=== PATIENT | female | born 1970 | race Caucasian/White ===

== ENCOUNTER 2017-04-14 16:21 | Emergency (ER) | payer BC, OTHER, SELFPAY ==
[2017-04-14 16:33] VITALS: BP 122/75
--- NOTE | 2017-04-14 16:56 | EDM.PDOC ---
ED HPI GENERAL MEDICAL PROBLEM - General Chief Complaint: Behavioral/Psych Stated Complaint: CONFUSION, HEARING/SEEING THINGS Time Seen by Provider: 04/14/17 16:30 Source of Information: Reports: Patient, RN Notes Reviewed History Limitations: Reports: No Limitations - History of Present Illness INITIAL COMMENTS - FREE TEXT/NARRATIVE: The patient states that she both smoked and injected methamphetamine starting about 2 weeks ago, and continuing until about one week ago. She states that she has never previously done methamphetamine. Since then, she is having difficulty performing her activities of daily living. She has not eaten much. She has auditory hallucinations in the form of hearing people talking about her outside of her house, and visual hallucinations in the form of seeing the same cars over and over, as well as the feeling of being watched or followed. The patient has tried cocaine in the past, but it has been more than 5 years. She smoked some marijuana this past week. She reports feeling suicidal for the past 2 or 3 days, and has considered a plan of taking an overdose of her medications. She states that she had a prior suicide attempt around 2001, by taking an overdose of pills. She states that she was psychiatrically hospitalized for about 10 days at that time. She states that she has not made any recent attempts to harm herself. The patient's PCP is Dr. Paredes, and her Psychiatrist is Dr. Magana. She states that she has not contacted either of these physicians regarding her current issues. - Related Data Allergies Allergy/AdvReac Type Severity Reaction Status Date / Time No Known Allergies Allergy Verified 04/14/17 16:51 Home Meds: Home Meds Lisinopril 20 mg PO DAILY 12/03/14 [History] Naproxen 500 mg PO BID #14 tablet 12/03/14 [Rx] Escitalopram Oxalate [Escitalopram Oxalate] 20 mg PO DAILY 04/14/17 [History] Lisinopril/Hydrochlorothiazide [Lisinopril-Hctz 20-12.5 mg Tab] 1 tab PO DAILY 04/14/17 [History] Topiramate [Topiramate] 100 mg PO QPM 04/14/17 [History] atorvaSTATin Calcium [Atorvastatin Calcium] 20 mg PO DAILY 04/14/17 [History] clonazePAM [Clonazepam] 0.5 mg PO ASDIRECTED PRN 04/14/17 [History] Past Medical History Cardiovascular History: Reports: High Cholesterol, Hypertension Psychiatric History: Reports: Anxiety, Depression, PTSD - Past Surgical History HEENT Surgical History: Reports: Oral Surgery (Reubens teeth extraction) Female Surgical History: Reports: D&C (x 1), Tubal Ligation Social & Family History - Family History Family Medical History: Noncontributory - Tobacco Use Smoking Status *Q: Current Every Day Smoker Years of Tobacco use: 28 Packs/Tins Daily: 1 - Caffeine Use Caffeine Use: Reports: None - Alcohol Use Alcohol Use History: Yes Days Per Week of Alcohol Use: 0 Number of Drinks Per Day: 2 Total Drinks Per Week: 0 Alcohol Use Frequency: Socially - Recreational Drug Use Recreational Drug Use: Yes Drug Use in Last 12 Months: Yes Recreational Drug Type: Reports: Cocaine, Marijuana/Hashish, Methamphetamine Recreational Drug Route: Reports: Inhaled, Intravenous - Living Situation & Occupation Living situation: Reports: , Alone Occupation: Unemployed ED ROS GENERAL - Review of Systems Review Of Systems: See Below Constitutional: Reports: No Symptoms HEENT: Reports: No Symptoms Respiratory: Reports: No Symptoms Cardiovascular: Reports: No Symptoms Endocrine: Reports: No Symptoms GI/Abdominal: Reports: No Symptoms : Reports: No Symptoms Musculoskeletal: Reports: No Symptoms Skin: Reports: No Symptoms Neurological: Reports: No Symptoms Psychiatric: Reports: No Symptoms Hematologic/Lymphatic: Reports: No Symptoms Immunologic: Reports: No Symptoms ED EXAM, BEHAVIORAL HEALTH - Physical Exam Exam: See Below Exam Limited By: No Limitations General Appearance: Alert, WD/WN, No Apparent Distress Ears: Normal External Exam, Hearing Grossly Normal Nose: Normal Inspection, No Blood Throat/Mouth: Normal Inspection, Normal Lips, Normal Voice, No Airway Compromise Head: Atraumatic, Normocephalic Neck: Normal Inspection, Full Range of Motion Respiratory/Chest: No Respiratory Distress, Lungs Clear, Normal Breath Sounds, No Accessory Muscle Use Cardiovascular: Normal Peripheral Pulses, Regular Rate, Rhythm, No Gallop, No JVD, No Murmur, No Rub GI/Abdominal: Normal Bowel Sounds, Soft, Non-Tender, No Organomegaly, No Distention, No Abnormal Bruit, No Mass (Female) Exam: Deferred Rectal (Female) Exam: Deferred Back Exam: Normal Inspection, Full Range of Motion, NT Extremities: Normal Inspection, Normal Range of Motion, No Pedal Edema, Normal Capillary Refill Neurological: Alert, Normal Cognition, No Motor/Sensory Deficits, Oriented x 3 Psychiatric: Depressed Mood Skin Exam: Warm, Dry, Intact, Normal color, No rash EKG INTERPRETATION EKG Date: 04/14/17 Time: 17:01 Rhythm: NSR Rate (Beats/Min): 65 [place]: Normal P-Wave: Present QRS: Normal ST-T: Normal QT: Normal Comparison: NA - No Prior EKG COURSE, BEHAVIORAL HEALTH COMP - Course Vital Signs: Last Vital Signs Temp 36.6 C 04/14/17 16:30 Pulse 87 04/14/17 16:30 Resp 18 04/14/17 16:30 BP 122/75 04/14/17 16:30 Pulse Ox 100 04/14/17 16:30 Orders, Labs, Meds: Laboratory Tests 04/14/17 04/14/17 04/14/17 Range/Units 17:12 17:12 17:12 WBC 7.20 (3.98-10.04) K/mm3 RBC 4.45 (3.98-5.22) M/mm3 Hgb 12.2 (11.2-15.7) gm/L Hct 37.8 (34.1-44.9) % MCV 84.9 (79.4-94.8) fl MCH 27.4 (25.6-32.2) pg MCHC 32.3 (32.2-35.5) g/dl RDW Std Deviation 45.5 (36.4-46.3) fL Plt Count 414 H (182-369) K/mm3 MPV 8.8 L (9.4-12.3) fl Neutrophils % (Manual) 68 H (40-60) % Band Neutrophils % 1 (0-10) % Lymphocytes % (Manual) 30 (20-40) % Atypical Lymphs % 0 % Monocytes % (Manual) 1 L (2-10) % Eosinophils % (Manual) 0 L (0.7-5.8) % Basophils % (Manual) 0 L (0.1-1.2) Platelet Estimate Adequate Plt Morphology Comment Normal Anisocytosis 1+ slight RBC Morph Comment Not Reportable Sodium 138 (136-145) mEq/L Potassium 3.4 L (3.5-5.1) mEq/L Chloride 102 (98-107) mEq/L Carbon Dioxide 25 (21-32) mEq/L Anion Gap 14.4 (5-15) BUN 23 H (7-18) mg/dL Creatinine 1.4 H (0.55-1.02) mg/dL Est Cr Clr Drug Dosing 40.65 mL/min Estimated GFR (MDRD) 40 (>60) mL/min BUN/Creatinine Ratio 16.4 (14-18) Glucose 104 (74-106) mg/dL Calcium 8.9 (8.5-10.1) mg/dL Total Bilirubin 0.2 (0.2-1.0) mg/dL AST 24 (15-37) U/L ALT 37 (14-59) U/L Alkaline Phosphatase 99 (46-116) U/L Total Protein 6.8 (6.4-8.2) g/dl Albumin 3.5 (3.4-5.0) g/dl Globulin 3.3 gm/dL Albumin/Globulin Ratio 1.1 (1-2) TSH 3rd Generation 0.535 (0.358-3.74) uIU/mL Urine HCG, Qual (NEGATIVE) Salicylates 14.0 (2.8-20) mg/dL Urine Opiates Screen (NEGATIVE) Ur Buprenorphine Scrn (NEGATIVE) Ur Oxycodone Screen (NEGATIVE) Urine Methadone Screen (NEGATIVE) Ur Propoxyphene Screen (NEGATIVE) Acetaminophen 6 L (10-30) ug/mL Ur Barbiturates Screen (NEGATIVE) Ur Tricyclics Screen (NEGATIVE) Ur Phencyclidine Scrn (NEGATIVE) Ur Amphetamine Screen (NEGATIVE) U Methamphetamines Scrn (NEGATIVE) U Benzodiazepines Scrn (NEGATIVE) U Cocaine Metab Screen (NEGATIVE) U Marijuana (THC) Screen (NEGATIVE) Ethyl Alcohol 0.00 (0.00) gm% 04/14/17 04/14/17 Range/Units 17:25 17:25 WBC (3.98-10.04) K/mm3 RBC (3.98-5.22) M/mm3 Hgb (11.2-15.7) gm/L Hct (34.1-44.9) % MCV (79.4-94.8) fl MCH (25.6-32.2) pg MCHC (32.2-35.5) g/dl RDW Std Deviation (36.4-46.3) fL Plt Count (182-369) K/mm3 MPV (9.4-12.3) fl Neutrophils % (Manual) (40-60) % Band Neutrophils % (0-10) % Lymphocytes % (Manual) (20-40) % Atypical Lymphs % % Monocytes % (Manual) (2-10) % Eosinophils % (Manual) (0.7-5.8) % Basophils % (Manual) (0.1-1.2) Platelet Estimate Plt Morphology Comment Anisocytosis RBC Morph Comment Sodium (136-145) mEq/L Potassium (3.5-5.1) mEq/L Chloride (98-107) mEq/L Carbon Dioxide (21-32) mEq/L Anion Gap (5-15) BUN (7-18) mg/dL Creatinine (0.55-1.02) mg/dL Est Cr Clr Drug Dosing mL/min Estimated GFR (MDRD) (>60) mL/min BUN/Creatinine Ratio (14-18) Glucose (74-106) mg/dL Calcium (8.5-10.1) mg/dL Total Bilirubin (0.2-1.0) mg/dL AST (15-37) U/L ALT (14-59) U/L Alkaline Phosphatase (46-116) U/L Total Protein (6.4-8.2) g/dl Albumin (3.4-5.0) g/dl Globulin gm/dL Albumin/Globulin Ratio (1-2) TSH 3rd Generation (0.358-3.74) uIU/mL Urine HCG, Qual Negative (NEGATIVE) Salicylates (2.8-20) mg/dL Urine Opiates Screen Negative (NEGATIVE) Ur Buprenorphine Scrn Negative (NEGATIVE) Ur Oxycodone Screen Negative (NEGATIVE) Urine Methadone Screen Negative (NEGATIVE) Ur Propoxyphene Screen Negative (NEGATIVE) Acetaminophen (10-30) ug/mL Ur Barbiturates Screen Negative (NEGATIVE) Ur Tricyclics Screen Negative (NEGATIVE) Ur Phencyclidine Scrn Negative (NEGATIVE) Ur Amphetamine Screen Negative (NEGATIVE) U Methamphetamines Scrn Negative (NEGATIVE) U Benzodiazepines Scrn Presumptive positive H (NEGATIVE) U Cocaine Metab Screen Negative (NEGATIVE) U Marijuana (THC) Screen Presumptive positive H (NEGATIVE) Ethyl Alcohol (0.00) gm% Medical Clearance: 04/14/17 18:[address] Campos, Psychiatrist at [facility]. She accepts the patient for admission, however, would like the patient to be involuntary, transported by the triage nurse, and they are willing to hold the bed until midnight CT. 04/14/17 18:35 Notified that all of the application software developer are currently out on assignment. One will call us back when they are available to let us know if they can transport the patient today. 04/14/17 19:[address] Deluca, and care of the patient turned over to him at this time, for change of shift. At this time, a triage nurse is not available to transport the patient, however, there is still time to get the patient to [place] before midnight central time, if a triage nurse becomes available. If not, the patient will need to remain in the ED overnight, and a new accepting facility will need to be found. 04/14/17 20:40 The patient will be transferred to [facility] by the triage nurse. Departure - Departure Time of Disposition: 20:40 Disposition: DC/Tfer to Psych Hosp/Unit 65 Condition: Good Clinical Impression: Psychosis, Suicidal ideation, Depression - Discharge Information
== END 2017-04-14 20:30 ==
LOC: JD.ED 16:21
DX: R45.851 Suicidal ideations (principal); F32.9 Major depressive disorder, single episode, unspecified; F29 Unspecified psychosis not due to a substance or known physiological condition; F17.210 Nicotine dependence, cigarettes, uncomplicated; Z79.899 Other long term (current) drug therapy; E78.00 Pure hypercholesterolemia, unspecified; I10 Essential (primary) hypertension; F41.8 Other specified anxiety disorders
CPT/HCPCS: 36415; 80053; 80306; 81025; 84443; 85025; 93005; 99285; G0480; 99284

== ENCOUNTER 2017-09-14 14:05 | Emergency (ER) | payer BC, MEDICAID, OTHER ==
[2017-09-14 14:20] VITALS: BP 134/86
[2017-09-14] MEDS ORDERED: Sodium Chloride 0.9% 10 ML Syringe FLUSH PRN (14:31)
[2017-09-14] MEDS ORDERED: Aspirin 81 MG Tab.Chew PO ONE (14:31)
[2017-09-14] MEDS ORDERED: LORazepam 2 MG/ML MDV IVPUSH ONE (14:32)
[2017-09-14] MEDS ORDERED: Sodium Chloride 0.9% 1,000 ML IV SCH (14:45)
--- NOTE | 2017-09-14 15:20 | CR ---
Chest: Portable view of the chest was obtained. Comparison: No prior chest x-ray. Heart size and mediastinum are normal. Lungs are clear. Minimal scoliosis is noted within the spine. Impression: 1. Nothing acute is identified on portable chest x-ray. Diagnostic code #2
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
[2017-09-14] MEDS ORDERED: HYDROmorphone 0.5 MG/0.5 ML Syringe IVPUSH ONE (16:18)
[2017-09-14] MEDS ORDERED: Acetaminophen/HYDROcodone 325-5 MG Tab PO ONE (16:34)
== END 2017-09-14 16:48 | disposition home or self-care (01) ==
LOC: JD.ED 14:05
DX: R51 Headache (principal); R07.89 Other chest pain; E78.00 Pure hypercholesterolemia, unspecified; I10 Essential (primary) hypertension; K21.9 Gastro-esophageal reflux disease without esophagitis; F17.210 Nicotine dependence, cigarettes, uncomplicated; F32.9 Major depressive disorder, single episode, unspecified; Z79.899 Other long term (current) drug therapy
CPT/HCPCS: 36415; 71010; 80053; 84484; 85025; 85379; 93005; 96361; 96374; 99285; A9270; J2060; J7040; J7050; 93010

== ENCOUNTER 2017-09-29 22:03 | Emergency (ER) | payer MEDICAID ==
[2017-09-29 22:26] VITALS: BP 145/107
--- NOTE | 2017-09-29 23:00 | EDM.PDOC ---
ED HPI GENERAL MEDICAL PROBLEM - General Chief Complaint: Laceration Stated Complaint: CUT THUMB ON R HAND Time Seen by Provider: 09/29/17 22:10 Source of Information: Reports: Patient, RN Notes Reviewed History Limitations: Reports: No Limitations - History of Present Illness INITIAL COMMENTS - FREE TEXT/NARRATIVE: The patient states that she accidentally lacerated the dorsal aspect of her right thumb around 21:45 this evening, when cutting a tomato. She is otherwise uninjured. No prior right thumb injury. The patient's last tetanus vaccination was in 2014. The patient's PCP is Dr. Paredes. Right 1-Thumb Pain Score (Numeric/FACES): 7 - Related Data Allergies Allergy/AdvReac Type Severity Reaction Status Date / Time No Known Allergies Allergy Verified 09/29/17 22:16 Home Meds: Home Meds Escitalopram Oxalate [Escitalopram Oxalate] 20 mg PO DAILY 04/14/17 [History] Lisinopril/Hydrochlorothiazide [Lisinopril-Hctz 20-12.5 mg Tab] 1 tab PO DAILY 04/14/17 [History] Topiramate [Topiramate] 100 mg PO BID 04/14/17 [History] atorvaSTATin Calcium [Atorvastatin Calcium] 20 mg PO DAILY 04/14/17 [History] clonazePAM [Clonazepam] 0.5 mg PO ASDIRECTED PRN 04/14/17 [History] ALPRAZolam [Xanax] 1 mg PO TID PRN 09/14/17 [History] Gabapentin [Neurontin] 300 mg PO DAILY 09/14/17 [History] Naproxen 500 mg PO BID PRN 09/14/17 [History] Prazosin [Minpress] 1 mg PO DAILY 09/14/17 [History] hydrOXYzine Pamoate [Vistaril] 25 mg PO BEDTIME 09/14/17 [History] Past Medical History Cardiovascular History: Reports: High Cholesterol, Hypertension Gastrointestinal History: Reports: GERD Psychiatric History: Reports: Anxiety, Depression, PTSD - Past Surgical History HEENT Surgical History: Reports: Oral Surgery ([place] teeth extraction), Tonsillectomy Female Surgical History: Reports: Section (x 1), D&C (x 1), Tubal Ligation Musculoskeletal Surgical History: Reports: ORIF (right fifth finger) Social & Family History - Family History Family Medical History: Noncontributory - Tobacco Use Smoking Status *Q: Current Every Day Smoker Years of Tobacco use: 30 Packs/Tins Daily: 1 Packs/Tins Daily Comment: Down from 1.5 ppd - Caffeine Use Caffeine Use: Reports: Coffee - Alcohol Use Alcohol Use History: Yes Days Per Week of Alcohol Use: 0 Number of Drinks Per Day: 2 Total Drinks Per Week: 0 Alcohol Use Frequency: Socially - Recreational Drug Use Recreational Drug Use: Yes Drug Use in Last 12 Months: No Recreational Drug Type: Reports: Cocaine (last = 2010), Marijuana/Hashish (last = 2015) - Living Situation & Occupation Living situation: Reports: , Alone 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[employer]) ED ROS GENERAL - Review of Systems Review Of Systems: See Below Constitutional: Reports: No Symptoms HEENT: Reports: No Symptoms Respiratory: Reports: No Symptoms Cardiovascular: Reports: No Symptoms Endocrine: Reports: No Symptoms GI/Abdominal: Reports: No Symptoms : Reports: No Symptoms Musculoskeletal: Reports: No Symptoms Skin: Reports: No Symptoms Neurological: Reports: No Symptoms Psychiatric: Reports: No Symptoms Hematologic/Lymphatic: Reports: No Symptoms Immunologic: Reports: No Symptoms ED EXAM, SKIN/RASH Exam: See Below Exam Limited By: No Limitations General Appearance: Alert, WD/WN, No Apparent Distress Extremities: Other (Approximately 2.0 cm curvilinear laceration over the extensor surface of the right first MCP joint. Significant bleeding. No apparent extensor tendon injury. Neurovascular status of the right thumb is intact.) ED SKIN PROCEDURES - Laceration/Wound Repair Right Hand Lac/Wound length In cm: 2.0 Appearance: Subcutaneous, Irregular, Clean Distal NVT: Neuro & Vascular Intact, No Tendon Injury Anesthetic Type: Local Local Anesthesia - Lidocaine (Xylocaine): 1% with EPI Local Anesthesia - Bupivicaine (Marcaine): 0.5% Plain Local Anesthetic Volume: 1cc Skin Prep: Providone-Iodine (Betadine) Exploration/Debridement/Repair: Wound Explored, In a Bloodless Field, Explored to Base, Wound Margins Revised Closed with: Sutures Suture Size: 3-0 Suture Type: Nylon, Interrupted, Simple Sterile Dressing Applied: Nurse Tetanus Status Addressed: Yes Complications: No Course - Vital Signs Last Recorded V/S: Last Vital Signs Temp 36.7 C 09/29/17 22:21 Pulse 65 09/29/17 22:21 Resp 18 09/29/17 22:21 BP 145/107 H 09/29/17 22:21 Pulse Ox 99 09/29/17 22:21 - Orders/Labs/Meds Meds: Medications Discontinued Medications Generic Name Dose Route Start Last Admin Trade Name Kathleen PRN Reason Stop Dose Admin Bupivacaine HCl 10 ml 09/29/17 23:19 09/29/17 23:44 Sensorcaine-Mpf 0.5% INJECT 09/29/17 23:20 10 ml ONETIME ONE Administration Lidocaine/Epinephrine 20 ml 09/29/17 23:18 09/29/17 23:44 Xylocaine 1% With Epinephrine 1:100,000 INJECT 09/29/17 23:19 20 ml ONETIME ONE Administration Lidocaine/Tetracaine 1 ml 09/29/17 23:18 09/29/17 23:43 Let Soln TOP 09/29/17 23:19 1 ml ONETIME ONE Administration - Re-Assessments/Exams Free Text/Narrative Re-Assessment/Exam: 09/29/17 23:01 I'm hoping to Dermabond the laceration, however, that will not be possible if the wound is bleeding. I have therefore asked the patient to apply direct pressure to the wound for about 10-15 minutes, to see if we can get it to stop bleeding. 09/29/17 23:19 After about 15 minutes of direct pressure, the wound has stopped bleeding, however, the edges do not approximate, therefore sutures will be required. I have ordered some LET to be applied. 09/30/17 02:39 We have been very busy in the ED tonight. By the time I returned to suture the patient's laceration, I was not certain that there was adequate anesthesia from the LET, therefore I instilled a small amount of a 50:50 admixture of lidocaine 1% with epinephrine and bupivacaine 0.5% without epinephrine. The wound was closed with 3 simple interrupted sutures using 3-0 Ethilon. The patient tolerated the procedure well. A Band-Aid was applied per nurse Figueroa. Departure - Departure Time of Disposition: 02:43 Disposition: Home, Self-Care 01 Condition: Good Clinical Impression: Hand laceration - Discharge Information Referrals: PCP,None [Ordering Only Provider] - Jonny Paredes MD [Primary Care Provider] - Forms: ED Department Discharge Additional Instructions: You were seen in the emergency room after cutting the base of your right thumb. Your wound was closed with 3 sutures. Keep the wound clean with ordinary soap and water. Pat dry, then apply a clean Band-Aid, daily. Do not soak the wound, such as with doing dishes, in the bathtub, or swimming. If the wound gets dirty, wash it with soap and water and reapply a clean Band- Aid. The sutures should be ready for removal by 10/10/2017. They can be removed at a walk-in clinic, your doctor's office, or in the ER. If any other problems, please do not hesitate to return to the ER.
[2017-09-29] MEDS ORDERED: Lidocaine/EPINEPHrine/Tetracaine Soln 1 ML TOP ONE (23:18)
[2017-09-29] MEDS ORDERED: Lidocaine 1% with EPINEPHrine 1:100,000 20 ML MDV INJECT ONE (23:18)
[2017-09-29] MEDS ORDERED: Bupivacaine 0.5% 10 ML SDV INJECT ONE (23:19)
== END 2017-09-30 02:52 | disposition home or self-care (01) ==
LOC: JD.ED 22:03
DX: S61.011A Laceration without foreign body of right thumb without damage to nail, initial encounter (principal); F17.210 Nicotine dependence, cigarettes, uncomplicated; Z79.899 Other long term (current) drug therapy; W26.0XXA Contact with knife, initial encounter
CPT/HCPCS: 12001; 99283; A9270; 99282-25

== ENCOUNTER 2017-11-18 20:30 | Emergency (ER) | payer MEDICAID ==
[2017-11-18 20:53] VITALS: BP 131/76
--- NOTE | 2017-11-18 20:53 | EDM.PDOCBH ---
ED HPI GENERAL MEDICAL PROBLEM - General Chief Complaint: Behavioral/Psych Stated Complaint: LIBERTAD AMB Time Seen by Provider: 11/18/17 20:53 Source of Information: Reports: Patient History Limitations: Reports: No Limitations - History of Present Illness INITIAL COMMENTS - FREE TEXT/NARRATIVE: 47-year-old female presents to the ED in the catheter #2 police officers. Apparently she was driving a vehicle on authorized. She states she was coming to the hospital for care but took someone else's vehicle. He currently is in her own home but only for another week apparently she's been evicted. Patient has suffered severe frostbite to the tips of all of her fingers 2 weeks ago and was hospital is in [facility] I believe. She used methamphetamines on last week and some swelling he has felt jittery anxious and shooting pains in her limbs particularly today. This is caused her not to eat or drink much. She feels anxious nauseated with some diarrhea. No fever or chills. She's not sure where she is going to go after she is evicted from her home in the next week. She is post follow-up with physiotherapy tomorrow in our hospital for whirlpool treatments of her fingertips and debridement as needed. Patient is on antidepressant citalopram and is on Xanax 1 mg 3 times a day and clonazepam 0.5 mg when necessary. It's unclear if she's been taking the medications as prescribed. Onset: Today Onset Date: 11/17/17 (Symptoms started yesterday and last night. Unable sleep much the last few days.) Duration: Hour(s): Location: Reports: Generalized (Generalized sharp stabbing lancinating pain in her limbs i.e. neurogenic.) Severity: Moderate Improves with: Reports: None Worsens with: Reports: None Context: Reports: Other (Methamphetamine use 3 days ago.). Denies: Activity, Exercise, Lifting, Sick Contact, Trauma Associated Symptoms: Reports: Cough, Fever/Chills, Loss of Appetite, Malaise, Nausea/Vomiting, Other (Nausea mild diarrhea by her report.). Denies: Confusion , Chest Pain, cough w sputum, Diaphoresis, Headaches (Chills but no fever), Rash , Seizure, Shortness of Breath, Syncope Treatments DIRECTOR OF SPECIAL SERVICES: Reports: Other (see below) (None.) Left Chest Pain Score (Numeric/FACES): 6 - Related Data Allergies Allergy/AdvReac Type Severity Reaction Status Date / Time No Known Allergies Allergy Verified 09/29/17 22:16 Home Meds: Home Meds Escitalopram Oxalate [Escitalopram Oxalate] 20 mg PO DAILY 04/14/17 [History] Lisinopril/Hydrochlorothiazide [Lisinopril-Hctz 20-12.5 mg Tab] 1 tab PO DAILY 04/14/17 [History] Topiramate [Topiramate] 100 mg PO BID 04/14/17 [History] atorvaSTATin Calcium [Atorvastatin Calcium] 20 mg PO DAILY 04/14/17 [History] clonazePAM [Clonazepam] 0.5 mg PO ASDIRECTED PRN 04/14/17 [History] ALPRAZolam [Xanax] 1 mg PO TID PRN 09/14/17 [History] Gabapentin [Neurontin] 300 mg PO DAILY 09/14/17 [History] Naproxen 500 mg PO BID PRN 09/14/17 [History] Prazosin [Minpress] 1 mg PO DAILY 09/14/17 [History] hydrOXYzine Pamoate [Vistaril] 25 mg PO BEDTIME 09/14/17 [History] Past Medical History - Past Health History Medical/Surgical History: Denies Medical/Surgical History Cardiovascular History: Reports: High Cholesterol, Hypertension Gastrointestinal History: Reports: GERD 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 (See Below) Other OB/BYN History: menopause Neurological History: Reports: Headaches, Chronic Psychiatric History: Reports: Anxiety, Depression, PTSD - Past Surgical History HEENT Surgical History: Reports: Oral Surgery, Tonsillectomy Female Surgical History: Reports: Section, D&C, Tubal Ligation Musculoskeletal Surgical History: Reports: ORIF Social & Family History - Family History Family Medical History: Noncontributory - Tobacco Use Smoking Status *Q: Current Every Day Smoker Years of Tobacco use: 30 Packs/Tins Daily: 1 Second Hand Smoke Exposure: No - Caffeine Use Caffeine Use: Reports: Coffee, Soda - Alcohol Use Days Per Week of Alcohol Use: 0 Number of Drinks Per Day: 2 Total Drinks Per Week: 0 - Recreational Drug Use Recreational Drug Use: Yes Drug Use in Last 12 Months: No Recreational Drug Type: Reports: Marijuana/Hashish, Methamphetamine Other Recreational Drug Type: last used thursday - Living Situation & Occupation Living situation: Reports: , Alone 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 Denies : Fever, Chills HEENT: Reports: No Symptoms Respiratory: Reports: No Symptoms, Shortness of Breath Cardiovascular: Reports: Palpitations (Occasional palpitations) Endocrine: Reports: Fatigue GI/Abdominal: Reports: Diarrhea, Decreased Appetite, Nausea. Denies: Abdominal Pain, Difficulty Swallowing, Distension, Flatus, Hematemesis, Hematochezia, Melena, Other : Reports: No Symptoms Musculoskeletal: Reports: Other (Pain mostly in her fingertips where she has suffered severe frostbite. The left distal fingertip on the left hand remains quite white. There is an open wound to the tip of the right third finger as well where there has been skin breakdown. ) Skin: Reports: Other (Patient has skin sloughing from almost all the fingers of both hands. There is no open active infective wounds.) Neurological: Reports: Numbness, Paresthesia (All fingertips), Tingling. Denies : Trouble Speaking ( all fingertips of both hands.), Difficulty Walking, Weakness Psychiatric: Reports: Anxiety Hematologic/Lymphatic: Reports: No Symptoms Immunologic: Reports: No Symptoms ED EXAM, BEHAVIORAL HEALTH - Physical Exam Exam: See Below Exam Limited By: No Limitations General Appearance: Alert, WD/WN, Anxious Eye Exam: Bilateral Eye: Normal Inspection Throat/Mouth: Normal Inspection, Normal Oropharynx (Tongue is mildly dry and coated.), Other Head: Atraumatic, Normocephalic Neck: Normal Inspection, Supple, Non-Tender, Full Range of Motion. No: Lymphadenopathy (L), Lymphadenopathy (R) Respiratory/Chest: No Respiratory Distress, Lungs Clear, Normal Breath Sounds, Chest Non-Tender Cardiovascular: Normal Peripheral Pulses, Regular Rate, Rhythm, No Edema, No Gallop, No Rub GI/Abdominal: Normal Bowel Sounds, Soft, Non-Tender, No Organomegaly, No Abnormal Bruit, No Mass, Pelvis Stable Back Exam: Normal Inspection, Full Range of Motion, Other (No abrasions or contusions.). No: CVA Tenderness (L) Extremities: Other (Fingers show evidence of frostbite injuries particularly the tips of all fingers. There is dressings applied to the middle fingers bilaterally where she has sloughed skin from the distal phalanx. The left fifth digit remains quite white on the end suspicious for skin loss and tissue loss.) Neurological: Alert, Normal Mood/Affect, CN II-XII Intact, Normal Cognition, Normal Gait, No Motor/Sensory Deficits, Oriented x 3 Psychiatric: Alert, Normal Affect, Normal Cognition, Normal Mood, Oriented, Other Skin Exam: Warm, Dry (Mildly anxious.), Intact, Normal color, No rash EKG INTERPRETATION EKG Date: 11/18/17 Time: 20:45 Rhythm: NSR Rate (Beats/Min): 79 [place]: Normal P-Wave: Present QRS: Other (Q waves V1 and V2 and V3 compatible with an old anteroseptal myocardial infarction. Q-wave in aVL which is nonspecific) ST-T: Other (Diffuse abnormal repolarization pattern.) QT: Normal EKG Interpretation Comments: Abnormal ECG. COURSE, BEHAVIORAL HEALTH COMP - Course Vital Signs: Last Vital Signs Temp 36.0 C 11/18/17 20:53 Pulse 78 11/18/17 20:53 Resp 14 11/18/17 20:53 BP 131/76 11/18/17 20:53 Pulse Ox 99 11/18/17 20:53 Orders, Labs, Meds: Active Orders 24 hr Category Date Time Status URINALYSIS W/MICROSCOPIC [UA W/MICROSCOPIC] [URIN] Stat Lab 11/18/17 21:20 Results Dextrose 5%-0.9% NaCl [Dextrose 5%-Normal Saline] 1,000 Med 11/18/17 21:15 Active ml IV ASDIRECTED Ketorolac [Toradol] Med 11/18/17 21:15 Active 30 mg IVPUSH ONETIME EKG 12 Lead [EK] Stat Ther 11/18/17 20:45 Ordered Medication Orders Dextrose/Sodium Chloride (Dextrose 5%-Normal Saline) 1,000 mls @ 999 mls/hr IV ASDIRECTED ELODIA Last Admin: 11/18/17 21:19 Dose: 999 mls/hr Ketorolac Tromethamine (Toradol) 30 mg IVPUSH ONETIME ELODIA Last Admin: 11/18/17 21:20 Dose: 30 mg Laboratory Tests 01/28/18 01/28/18 01/28/18 Range/Units 21:10 21:10 21:10 WBC 5.30 (3.98-10.04) K/mm3 RBC 4.79 (3.98-5.22) M/mm3 Hgb 14.4 (11.2-15.7) gm/L Hct 42.7 (34.1-44.9) % MCV 89.1 (79.4-94.8) fl MCH 30.1 (25.6-32.2) pg MCHC 33.7 (32.2-35.5) g/dl RDW Std Deviation 46.3 (36.4-46.3) fL Plt Count 338 (182-369) K/mm3 MPV 9.1 L (9.4-12.3) fl Neutrophils % (Manual) 61 H (40-60) % Band Neutrophils % 0 (0-10) % Lymphocytes % (Manual) 27 (20-40) % Atypical Lymphs % 0 % Monocytes % (Manual) 7 (2-10) % Eosinophils % (Manual) 5 (0.7-5.8) % Basophils % (Manual) 0 L (0.1-1.2) Platelet Estimate Adequate RBC Morph Comment Normal Sodium 140 (136-145) mEq/L Potassium 3.5 (3.5-5.1) mEq/L Chloride 106 (98-107) mEq/L Carbon Dioxide 24 (21-32) mEq/L Anion Gap 13.5 (5-15) BUN 18 (7-18) mg/dL Creatinine 1.0 (0.55-1.02) mg/dL Est Cr Clr Drug Dosing 56.91 mL/min Estimated GFR (MDRD) 59 (>60) mL/min BUN/Creatinine Ratio 18.0 (14-18) Glucose 123 H (74-106) mg/dL Calcium 8.5 (8.5-10.1) mg/dL Total Bilirubin 0.2 (0.2-1.0) mg/dL AST 15 (15-37) U/L ALT 24 (14-59) U/L Alkaline Phosphatase 101 (46-116) U/L C-Reactive Protein < 0.2 (<1.0) mg/dL Total Protein 6.5 (6.4-8.2) g/dl Albumin 3.2 L (3.4-5.0) g/dl Globulin 3.3 gm/dL Albumin/Globulin Ratio 1.0 (1-2) Urine Color (Yellow) Urine Appearance (Clear) Urine pH (5.0-8.0) Ur Specific [place] (1.005-1.030) Urine Protein (Negative) Urine Glucose (UA) (Negative) Urine Ketones (Negative) Urine Occult Blood (Negative) Urine Nitrite (Negative) Urine Bilirubin (Negative) Urine Urobilinogen (0.2-1.0) Ur Leukocyte Esterase (Negative) Urine Opiates Screen (NEGATIVE) Ur Buprenorphine Scrn (NEGATIVE) Ur Oxycodone Screen (NEGATIVE) Urine Methadone Screen (NEGATIVE) Ur Propoxyphene Screen (NEGATIVE) Ur Barbiturates Screen (NEGATIVE) Ur Tricyclics Screen (NEGATIVE) Ur Phencyclidine Scrn (NEGATIVE) Ur Amphetamine Screen (NEGATIVE) U Methamphetamines Scrn (NEGATIVE) U Benzodiazepines Scrn (NEGATIVE) U Cocaine Metab Screen (NEGATIVE) U Marijuana (THC) Screen (NEGATIVE) Ethyl Alcohol 0.00 (0.00) gm% 11/18/17 11/18/17 Range/Units 21:20 21:20 WBC (3.98-10.04) K/mm3 RBC (3.98-5.22) M/mm3 Hgb (11.2-15.7) gm/L Hct (34.1-44.9) % MCV (79.4-94.8) fl MCH (25.6-32.2) pg MCHC (32.2-35.5) g/dl RDW Std Deviation (36.4-46.3) fL Plt Count (182-369) K/mm3 MPV (9.4-12.3) fl Neutrophils % (Manual) (40-60) % Band Neutrophils % (0-10) % Lymphocytes % (Manual) (20-40) % Atypical Lymphs % % Monocytes % (Manual) (2-10) % Eosinophils % (Manual) (0.7-5.8) % Basophils % (Manual) (0.1-1.2) Platelet Estimate RBC Morph Comment Sodium (136-145) mEq/L Potassium (3.5-5.1) mEq/L Chloride (98-107) mEq/L Carbon Dioxide (21-32) mEq/L Anion Gap (5-15) BUN (7-18) mg/dL Creatinine (0.55-1.02) mg/dL Est Cr Clr Drug Dosing mL/min Estimated GFR (MDRD) (>60) mL/min BUN/Creatinine Ratio (14-18) Glucose (74-106) mg/dL Calcium (8.5-10.1) mg/dL Total Bilirubin (0.2-1.0) mg/dL AST (15-37) U/L ALT (14-59) U/L Alkaline Phosphatase (46-116) U/L C-Reactive Protein (<1.0) mg/dL Total Protein (6.4-8.2) g/dl Albumin (3.4-5.0) g/dl Globulin gm/dL Albumin/Globulin Ratio (1-2) Urine Color Yellow (Yellow) Urine Appearance Clear (Clear) Urine pH 6.5 (5.0-8.0) Ur Specific [place] 1.025 (1.005-1.030) Urine Protein Negative (Negative) Urine Glucose (UA) Negative (Negative) Urine Ketones Negative (Negative) Urine Occult Blood 1+ H (Negative) Urine Nitrite Negative (Negative) Urine Bilirubin Negative (Negative) Urine Urobilinogen 0.2 (0.2-1.0) Ur Leukocyte Esterase Negative (Negative) Urine Opiates Screen Negative (NEGATIVE) Ur Buprenorphine Scrn Negative (NEGATIVE) Ur Oxycodone Screen Presumptive positive H (NEGATIVE) Urine Methadone Screen Negative (NEGATIVE) Ur Propoxyphene Screen Negative (NEGATIVE) Ur Barbiturates Screen Negative (NEGATIVE) Ur Tricyclics Screen Negative (NEGATIVE) Ur Phencyclidine Scrn Negative (NEGATIVE) Ur Amphetamine Screen Presumptive positive H (NEGATIVE) U Methamphetamines Scrn Negative (NEGATIVE) U Benzodiazepines Scrn Negative (NEGATIVE) U Cocaine Metab Screen Negative (NEGATIVE) U Marijuana (THC) Screen Presumptive positive H (NEGATIVE) Ethyl Alcohol (0.00) gm% Medications Generic Name Dose Route Start Last Admin Trade Name Freq PRN Reason Stop Dose Admin Dextrose/Sodium Chloride 1,000 mls @ 999 mls/hr 11/18/17 21:15 11/18/17 21:19 Dextrose 5%-Normal Saline IV 999 mls/hr ASDIRECTED ELODIA Administration Ketorolac Tromethamine 30 mg 11/18/17 21:15 11/18/17 21:20 Toradol IVPUSH 30 mg ONETIME ELODIA Administration Discontinued Medications Generic Name Dose Route Start Last Admin Trade Name Kathleen PRN Reason Stop Dose Admin Clonazepam 1 mg 11/18/17 22:10 Klonopin PO 11/18/17 22:11 ONETIME ONE Lorazepam 1 mg 11/18/17 21:05 11/18/17 21:19 Ativan IVPUSH 11/18/17 21:06 1 mg ONETIME ONE Administration Re-Assessment/Re-Exam: 39-year-old female brought to the ED after she was caught driving a vehicle unauthorized to the which she took some analysis vehicle without their permission. Patient is currently living at her own home. She states that this is only for another week at which time she is evicted. She has no plans as to where she is going to live after this. Patient has been using alcohol and other drugs excessively as of late. Last use of methamphetamine was 3 days ago. She has suffered severe frostbite injuries to all of her fingers 2 weeks ago and still has bandages on the tips of the third fingers bilaterally. Skin is sloughed from the tips of those fingers. She is scheduled to see physiotherapy tomorrow with plans to get into the whirlpool bath and continued debridement of wounds. It looks like she may lose the tip of her left fifth finger as it remains completely white and red to touch. She has numbness and tingling of all of her fingertips due to nerve injury. Intermittently they hurt quite badly sharp stabbing pain as the nerves are coming back to life. At present she's feeling agitated and anxious. Complains of some nausea and claims to have had some vomiting. Hasn't ate or drank much the last 3-4 days. Plan routine labs will be done as well as an ECG to check her volume status. In the meantime I will give her D5 normal saline at open. Given Toradol 30 mg IV for pain relief. Urine and urine drug screen to be done. Given Ativan 1 mg IV for anxiety relief. Re-Assessment/Re-Exam Date: 11/18/17 (21 ;54 ;Labs reveal a normal white count at 5.30. Hemoglobin is 14.4 hematocrit is 42.7. Platelet callus 3 and 38,000. Differential is 61% neutrophils with no bands. Sodium is 140 with potassium of 3.5. Chloride 106 bicarbonate 24. And a gap is normal at 13.5. BUN is 18. Creatinine is 1.0. Glucose is 123. Calcium is 8.5 with a bilirubin of 0.2. AST is 15 ALT is 24 alkaline phosphatase 101. C-reactive protein is less than 0.2. Blood alcohol is 0.) Re-Assessment/Re-Exam Time: 22:12 (Urine drug screen is now available reveals positive to oxycodone amphetamine and marijuana. She's feeling improved. She is completed liter of IV fluids and is now rehydrated. Reports the pain is better in her jitters or better. She'll be discharged home with clonazepam 1 mg to take at bedtime as she does not have this medicine with her at this time. We'll get a taxi ride home. She is working with geriatric social work professor to try and establish another place to live as she'll be affected by November 23. Currently not employable due to damaged her fingers which will be about 6-8 weeks before they heal up enough to attempt any type of work. ) Departure - Departure Time of Disposition: 22:13 Disposition: Home, Self-Care 01 Condition: Fair Clinical Impression: Frostbite of both hands, Anxiety, Substance abuse in family - Discharge Information Referrals: Jonny Paredes MD [Primary Care Provider] - Forms: ED Department Discharge Additional Instructions: Evaluation in the emergency department tonight in regards to feeling quite jittery with mild nausea and diarrhea since use of methamphetamines 3 days ago. This is disrupted her sleep pattern and you've had very little oral intake the last day or two. You're therefore treated with a liter of IV fluids with dextrose to rehydrate you and replenish sugar levels. Tests revealed that your overall doing fairly well with no signs of infection normal liver function kidney function and electrolyte status. You're treated in the ED with Ativan 1 mg IV for anxiety relief and Toradol 30 mg IV for pain relief in your fingertips. Also clonazepam 1 mg was given prior to discharge so that she be able sleep tonight. Follow-up with personal physician if any further problems occur. - My Orders Last 24 Hours: My Active Orders 11/18/17 21:15 Dextrose 5%-0.9% NaCl [Dextrose 5%-Normal Saline] 1,000 ml IV ASDIRECTED Ketorolac [Toradol] 30 mg IVPUSH ONETIME 11/18/17 21:20 URINALYSIS W/MICROSCOPIC [UA W/MICROSCOPIC] [URIN] Stat - Assessment/Plan Last 24 Hours: My Active Orders 11/18/17 21:15 Dextrose 5%-0.9% NaCl [Dextrose 5%-Normal Saline] 1,000 ml IV ASDIRECTED Ketorolac [Toradol] 30 mg IVPUSH ONETIME 11/18/17 21:20 URINALYSIS W/MICROSCOPIC [UA W/MICROSCOPIC] [URIN] Stat
[2017-11-18] MEDS ORDERED: LORazepam 2 MG/ML SDV IVPUSH ONE (21:05)
[2017-11-18] MEDS ORDERED: Dextrose 5%-0.9% NaCl 1,000 ML IV SCH (21:15)
[2017-11-18] MEDS ORDERED: Ketorolac 30 MG/ML SDV IVPUSH SCH (21:15)
[2017-11-18] MEDS ORDERED: ClonazePAM 1 MG Tab PO ONE (22:10)
== END 2017-11-18 22:28 | disposition home or self-care (01) ==
LOC: JD.ED 20:30
DX: T33.522A Superficial frostbite of left hand, initial encounter (principal); T33.521A Superficial frostbite of right hand, initial encounter; F41.9 Anxiety disorder, unspecified; I10 Essential (primary) hypertension; E78.00 Pure hypercholesterolemia, unspecified; K21.9 Gastro-esophageal reflux disease without esophagitis; F32.9 Major depressive disorder, single episode, unspecified; F17.210 Nicotine dependence, cigarettes, uncomplicated; Z79.899 Other long term (current) drug therapy; X31.XXXA Exposure to excessive natural cold, initial encounter
CPT/HCPCS: 36415; 80053; 80306; 81001; 85025; 86140; 93005; 96361; 96374; 96375; 99284; A9270; G0480; J1885; J2060; J7042; 93010; 99285

== ENCOUNTER 2017-12-15 08:09 | Emergency (ER) | payer MEDICAID ==
[2017-12-15 08:25] VITALS: BP 161/100
[2017-12-15] MEDS ORDERED: Acetaminophen 325 MG Tab PO ONE (09:28)
[2017-12-15] MEDS ORDERED: LORazepam 1 MG Tab PO ONE (09:28)
--- NOTE | 2017-12-15 09:44 | EDM.PDOC ---
ED HPI GENERAL MEDICAL PROBLEM - General Chief Complaint: Behavioral/Psych Stated Complaint: CHEST PAIN X 1 DAY POSSIBLE ANXIETY Time Seen by Provider: 12/15/17 08:32 Source of Information: Reports: Patient, RN Notes Reviewed - History of Present Illness INITIAL COMMENTS - FREE TEXT/NARRATIVE: 39-year-old female comes in with left-sided chest discomfort. This started somewhat last evening but much worse this morning. It is over her left anterior chest, worse with deep breathing. She also is starting to have some nasal and sinus congestion, occasional coughing that started about 2 days ago. He eats her cough has become mildly productive this morning. Is have chest pain with coughing as well. She's had some chills but no definite fever. No abdominal pain nausea or vomiting. She did use meth about a month ago but no further meth usage. Sounds like she does use marijuana on a somewhat regular basis. - Related Data Allergies Allergy/AdvReac Type Severity Reaction Status Date / Time No Known Allergies Allergy Verified 12/15/17 08:25 Home Meds: Home Meds Escitalopram Oxalate [Escitalopram Oxalate] 20 mg PO DAILY 04/14/17 [History] Lisinopril/Hydrochlorothiazide [Lisinopril-Hctz 20-12.5 mg Tab] 1 tab PO DAILY 04/14/17 [History] Topiramate [Topiramate] 100 mg PO BID 04/14/17 [History] atorvaSTATin Calcium [Atorvastatin Calcium] 20 mg PO DAILY 04/14/17 [History] clonazePAM [Clonazepam] 0.5 mg PO ASDIRECTED PRN 04/14/17 [History] ALPRAZolam [Xanax] 1 mg PO TID PRN 09/14/17 [History] Gabapentin [Neurontin] 300 mg PO DAILY 09/14/17 [History] Prazosin [Minpress] 1 mg PO DAILY 09/14/17 [History] hydrOXYzine Pamoate [Vistaril] 25 mg PO BEDTIME 09/14/17 [History] LORazepam [Ativan] 0.5 mg PO BID #10 tablet 12/15/17 [Rx] Past Medical History - Past Health History Medical/Surgical History: Denies Medical/Surgical History Cardiovascular History: Reports: High Cholesterol, Hypertension Gastrointestinal History: Reports: GERD CRANE LADLE PERSON History: Reports: Other (See Below) Other OB/BYN History: menopause Neurological History: Reports: Headaches, Chronic Psychiatric History: Reports: Anxiety, Depression, PTSD - Past Surgical History HEENT Surgical History: Reports: Oral Surgery, Tonsillectomy Female Surgical History: Reports: Section, D&C, Tubal Ligation Musculoskeletal Surgical History: Reports: ORIF Social & Family History - Family History Family Medical History: Noncontributory - Tobacco Use Smoking Status *Q: Current Every Day Smoker Years of Tobacco use: 30 Packs/Tins Daily: 1 Second Hand Smoke Exposure: No - Caffeine Use Caffeine Use: Reports: Coffee - Alcohol Use Days Per Week of Alcohol Use: 0 Number of Drinks Per Day: 2 Total Drinks Per Week: 0 - Recreational Drug Use Recreational Drug Use: Yes Drug Use in Last 12 Months: No Recreational Drug Type: Reports: Marijuana/Hashish, Methamphetamine Other Recreational Drug Type: last used - Living Situation & Occupation Living situation: Reports: , Alone 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 Denies: Fever, Diaphoresis HEENT: Reports: Rhinitis, Other. Denies: Throat Pain Respiratory: Reports: Pleuritic Chest Pain, Cough, Sputum. Denies: Shortness of Breath Cardiovascular: Reports: Chest Pain (With deep breathing and coughing) GI/Abdominal: Denies: Abdominal Pain, Nausea, Vomiting Musculoskeletal: Denies: Neck Pain, Shoulder Pain, Arm Pain, Back Pain Skin: Reports: No Symptoms Neurological: Reports: No Symptoms Psychiatric: Reports: Hallucinations (She did tell her admission nurse that she does at times hear voices is chronically). Denies: Suicidal Ideation ED EXAM, GENERAL - Physical Exam Exam: See Below General Appearance: Alert, Anxious Eye Exam: Bilateral Eye: PERRL Throat/Mouth: Normal Inspection Head: Atraumatic. No: Facial Swelling Neck: Supple, Full Range of Motion Respiratory/Chest: No Respiratory Distress, Lungs Clear, Normal Breath Sounds, Other (Left sternal border tenderness) Cardiovascular: Regular Rate, Rhythm GI/Abdominal: Soft, Non-Tender. No: Guarding Back Exam: No: CVA Tenderness (L), CVA Tenderness (R) Extremities: Normal Inspection, Normal Range of Motion Neurological: Alert, Oriented, No Motor/Sensory Deficits Skin Exam: Warm, Dry, Normal Color EKG INTERPRETATION EKG Date: 12/15/17 Rhythm: NSR [place]: Normal P-Wave: Present QRS: Normal ST-T: Normal Course - Vital Signs Last Recorded V/S: Last Vital Signs Temp 97.8 F 12/15/17 08:15 Pulse 87 12/15/17 08:15 Resp 18 12/15/17 08:15 BP 161/100 H 12/15/17 08:15 Pulse Ox 99 12/15/17 08:15 - Orders/Labs/Meds Labs: Laboratory Tests 12/15/17 Range/Units 08:57 Troponin I < 0.017 (0.00-0.056) ng/mL Meds: Medications Discontinued Medications Generic Name Dose Route Start Last Admin Trade Name Jasonq PRN Reason Stop Dose Admin Acetaminophen 975 mg 12/15/17 09:28 12/15/17 09:33 Tylenol PO 12/15/17 09:29 975 mg NOW ONE Administration Lorazepam 1 mg 12/15/17 09:28 12/15/17 09:33 Ativan PO 12/15/17 09:29 1 mg ONETIME ONE Administration - Re-Assessments/Exams Free Text/Narrative Re-Assessment/Exam: 12/15/17 16:02. Troponin did come back negative. Chest x-ray was normal. She did have significant left sternal border tenderness as documented. She was given Ativan 1 mg by mouth. She was more relaxed at time of discharge but not sleepy. Discharge instructions as documented Departure - Departure Time of Disposition: 10:14 Disposition: Home, Self-Care 01 Condition: Fair Clinical Impression: Anterior chest wall pain, Viral upper respiratory infection, Anxiety Prescriptions: LORazepam [Ativan] 0.5 mg PO BID #10 tablet Instructions: Generalized Anxiety Disorder, Adult, Viral Respiratory Infection , [id number], Chest Wall Pain Referrals: Jonny Paredes MD [Primary Care Provider] - Forms: ED Department Discharge Additional Instructions: Vaporizer or steam as needed, Advil or ibuprofen 600 mg 3 times daily with food for chest wall pain and inflammation, Ativan 0.5 mg twice daily if needed for stress, anxiety and also muscle relaxation. Follow-up with Dr. Paredes as planned. Return to ED as needed if symptoms worsening in any way.
--- NOTE | 2017-12-15 14:04 | CR ---
Chest: Portable view of the chest was obtained. Comparison: Prior chest x-ray of 09/14/17. Heart size and mediastinum are normal. Lungs are clear. Mild scoliosis is noted within the spine. Impression: 1. Nothing acute is identified on portable chest x-ray. No significant change is seen from previous chest x-ray. Diagnostic code #2
== END 2017-12-15 10:58 | disposition home or self-care (01) ==
LOC: JD.ED 08:09
DX: R07.89 Other chest pain (principal); J06.9 Acute upper respiratory infection, unspecified; F41.9 Anxiety disorder, unspecified; E78.00 Pure hypercholesterolemia, unspecified; I10 Essential (primary) hypertension; K21.9 Gastro-esophageal reflux disease without esophagitis; F17.210 Nicotine dependence, cigarettes, uncomplicated; Z79.899 Other long term (current) drug therapy
CPT/HCPCS: 36415; 71045; 84484; 99285; A9270; 99284

== ENCOUNTER 2018-04-29 19:33 | Inpatient (IN) | payer MEDICAID ==
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
[2018-04-29] MEDS ORDERED: Sodium Chloride 0.9% 1,000 ML IV ONE (20:31)
[2018-04-29] MEDS ORDERED: Azithromycin 500 MG in Sodium Chloride 0.9% 250 ML IV ONE (20:31)
[2018-04-29] MEDS ORDERED: cefTRIAXone 1 GM in Sodium Chloride 0.9% 100 ML IV ONE (20:31)
[2018-04-29] MEDS ORDERED: Famotidine 20 MG/2 ML SDV IVPUSH ONE (20:31)
[2018-04-29] MEDS ORDERED: Naloxone 2 MG/2 ML Syringe IVPUSH ONE (20:42)
[2018-04-29] MEDS ORDERED: Potassium Chloride 20 MEQ Tab.ER PO ONE (22:11)
[2018-04-29] MEDS ORDERED: Nicotine 21 MG/24 Hr Patch TRDERM ONE (22:13)
[2018-04-29] MEDS ORDERED: Sodium Chloride 0.9% 1,000 ML IV SCH (22:15)
[2018-04-29] MEDS ORDERED: Ondansetron 4 MG/2 ML SDV IVPUSH PRN (23:56)
[2018-04-29] MEDS ORDERED: Ondansetron 4 MG Tab.DIS PO PRN (23:56)
[2018-04-29] MEDS ORDERED: LORazepam 2 MG/ML SDV IVPUSH PRN (23:58)
[2018-04-30] MEDS ORDERED: hydrALAZINE 20 MG/ML SDV IVPUSH PRN ×2 (00:01→05:31)
[2018-04-30] MEDS ORDERED: Metoprolol Tartrate 5 MG/5 ML SDV IVPUSH PRN ×2 (00:02→05:31)
[2018-04-30] MEDS ORDERED: chlordiazePOXIDE 25 MG Cap PO PRN ×2 (00:05→05:35)
[2018-04-30] MEDS: Sodium Chloride 0.9% 1,000 ML IV SCH ×2 (00:40→11:06)
[2018-04-30 00:43] LABS: C. TRACHOMATIS BY PCR NOT DETECTED; N. GONORRHOEAE BY PCR NOT DETECTED
[2018-04-30] MEDS ORDERED: LORazepam 2 MG/ML SDV IVPUSH PRN (05:31)
[2018-04-30] MEDS ORDERED: Ibuprofen 400 MG Tab PO PRN (05:35)
[2018-04-30] MEDS ORDERED: Haloperidol Lactate 5 MG/ML SDV IM PRN (05:35)
[2018-04-30] MEDS ORDERED: HYDROmorphone 0.5 MG/0.5 ML SYRINGE IVPUSH PRN (05:35)
[2018-04-30] MEDS ORDERED: Polyethylene Glycol 3350 Powder 17 GM Packet PO PRN (05:35)
[2018-04-30] MEDS ORDERED: Bisacodyl 5 MG Tab PO PRN (05:35)
[2018-04-30] MEDS ORDERED: Acetaminophen/HYDROcodone 325-5 MG Tab PO PRN (05:35)
[2018-04-30] MEDS ORDERED: Promethazine 12.5 MG in Sodium Chloride 0.9% 50 ML IV PRN (05:35)
[2018-04-30] MEDS ORDERED: cloNIDine 0.1 MG Tab PO PRN (05:35)
[2018-04-30] MEDS ORDERED: Albuterol/Ipratropium 3.0-0.5 MG/3 ML Neb Soln NEB PRN (05:35)
[2018-04-30] MEDS ORDERED: Docusate Sodium 100 MG Cap PO PRN (05:35)
[2018-04-30] MEDS: Potassium Chloride 10 MEQ in Premix Bag 1 BAG IV SCH ×8 (08:21→16:58)
[2018-04-30] MEDS ORDERED: Multivitamins,Therapeutic Tab PO SCH (09:00)
[2018-04-30] MEDS ORDERED: Prazosin 1 MG Cap PO SCH (09:00)
[2018-04-30] MEDS ORDERED: Hydrochlorothiazide 12.5 MG Cap PO SCH (09:00)
[2018-04-30] MEDS ORDERED: Nicotine 21 MG/24 Hr Patch TRDERM SCH (09:00)
[2018-04-30] MEDS ORDERED: Thiamine 100 MG Tab PO SCH (09:00)
[2018-04-30] MEDS ORDERED: Folic Acid 1 MG Tab PO SCH (09:00)
[2018-04-30] MEDS ORDERED: Lisinopril 20 MG Tab PO SCH (09:00)
[2018-04-30] MEDS ORDERED: Topiramate 25 MG Tab PO SCH ×2 (09:00)
[2018-04-30] MEDS ORDERED: Citalopram 20 MG Tab PO SCH (09:00)
[2018-04-30] MEDS: Famotidine 20 MG Tab PO SCH ×2 (09:07→20:17)
--- NOTE | 2018-04-30 13:13 | PCM.HP ---
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 UTI * UA showed trace ketones, 1+ blood, trace LE, 0-5 RBC, 5-10 WBC, 5-10 epithelial cells, moderate bacteria * Culture growing gram positive cocci with probable strep species --> sensitivities pending * Rocephin 1 gm given in ED --> will order Rocephin 1 gm IV daily during admission Hypokalemia * K 3.0 in ED * Replete per pharmacy * Monitor Tobacco use disorder * Daily smoker * Nicotine patch * Breathing treatments prn * Cessation counseling Chronic: Polysubstance abuse HTN HLD GERD Asthma Anxiety Depression PTSD Plan ICU CIWAA Daily labs Home meds as indicated Heart Healthy diet Consult CM/SW Consult Dr. Degroot Consult substance abuse counselor DVT prophylaxis: SCDs GI prophylasix: Pepcid Code Status: Full Code PCP: Dr. Jonny Paredes <Arlet Farmer T - Last Filed: 04/30/18 16:28> H&P History of Present Illness - General Admit Problem/Dx: Admission Diagnosis/Problem Admission Diagnosis/Problem Overdose of illicit drug Exam - Vital Signs Vital Signs: Last Vital Signs Temp 36.6 C 04/30/18 12:00 Pulse 88 04/30/18 12:00 Resp 20 04/30/18 12:00 BP 132/83 04/30/18 09:08 Pulse Ox 96 04/30/18 12:00 - Patient Data Lab Results Last 24 hrs: Laboratory Results - last 24 hr 04/29/18 04/29/18 04/29/18 Range/Units 19:40 19:40 19:40 WBC 5.43 (3.98-10.04) K/mm3 RBC 4.85 (3.98-5.22) M/mm3 Hgb 15.0 (11.2-15.7) gm/L Hct 43.3 (34.1-44.9) % MCV 89.3 (79.4-94.8) fl MCH 30.9 (25.6-32.2) pg MCHC 34.6 (32.2-35.5) g/dl RDW Std Deviation 44.1 (36.4-46.3) fL Plt Count 258 (182-369) K/mm3 MPV 9.3 L (9.4-12.3) fl Neut % (Auto) 57.2 (34.0-71.1) % Lymph % (Auto) 31.7 (19.3-51.7) % [place] % (Auto) 8.1 (4.7-12.5) % Eos % (Auto) 2.4 (0.7-5.8) Baso % (Auto) 0.4 (0.1-1.2) % Neut # (Auto) 3.11 (1.56-6.13) K/mm3 Lymph # (Auto) 1.72 (1.18-3.74) K/mm3 [place]man # (Auto) 0.44 H (0.24-0.36) K/mm3 Eos # (Auto) 0.13 (0.04-0.36) K/mm3 Baso # (Auto) 0.02 (0.01-0.08) K/mm3 Sodium 143 (136-145) mEq/L Potassium 3.0 L (3.5-5.1) mEq/L Chloride 106 (98-107) mEq/L Carbon Dioxide 26 (21-32) mEq/L Anion Gap 14.0 (5-15) BUN 10 (7-18) mg/dL Creatinine 0.8 (0.55-1.02) mg/dL Est Cr Clr Drug Dosing 70.37 mL/min Estimated GFR (MDRD) > 60 (>60) mL/min BUN/Creatinine Ratio 12.5 L (14-18) Glucose 97 (74-106) mg/dL Calcium 8.5 (8.5-10.1) mg/dL Magnesium (1.8-2.4) mg/dl Total Bilirubin 0.5 (0.2-1.0) mg/dL AST 86 H (15-37) U/L ALT 142 H (14-59) U/L Alkaline Phosphatase 90 (46-116) U/L Total Protein 6.9 (6.4-8.2) g/dl Albumin 3.7 (3.4-5.0) g/dl Globulin 3.2 gm/dL Albumin/Globulin Ratio 1.2 (1-2) HCG, Qual (NEGATIVE) Urine Color (Yellow) Urine Appearance (Clear) Urine pH (5.0-8.0) Ur Specific [place] (1.005-1.030) Urine Protein (Negative) Urine Glucose (UA) (Negative) Urine Ketones (Negative) Urine Occult Blood (Negative) Urine Nitrite (Negative) Urine Bilirubin (Negative) Urine Urobilinogen (0.2-1.0) Ur Leukocyte Esterase (Negative) Urine RBC (0-5) /hpf Urine WBC (0-5) /hpf Ur Epithelial Cells (0-5) /hpf Calcium Oxalate Crystal (NONE) Urine Bacteria (FEW) /hpf Urine Mucus (FEW) /hpf Urine Opiates Screen (NEGATIVE) Ur Buprenorphine Scrn (NEGATIVE) Ur Oxycodone Screen (NEGATIVE) Urine Methadone Screen (NEGATIVE) Ur Propoxyphene Screen (NEGATIVE) Ur Barbiturates Screen (NEGATIVE) Ur Tricyclics Screen (NEGATIVE) Ur Phencyclidine Scrn (NEGATIVE) Ur Amphetamine Screen (NEGATIVE) U Methamphetamines Scrn (NEGATIVE) U Benzodiazepines Scrn (NEGATIVE) U Cocaine Metab Screen (NEGATIVE) U Marijuana (THC) Screen (NEGATIVE) Ethyl Alcohol 0.18 (0.00) gm% HIV-1 Ab Rapid Screen Negative (NEGATIVE) C trachomatis DNA (PCR) N gonorrhoeae DNA (PCR) 04/29/18 04/29/18 04/29/18 Range/Units 19:40 19:40 20:30 WBC (3.98-10.04) K/mm3 RBC (3.98-5.22) M/mm3 Hgb (11.2-15.7) gm/L Hct (34.1-44.9) % MCV (79.4-94.8) fl MCH (25.6-32.2) pg MCHC (32.2-35.5) g/dl RDW Std Deviation (36.4-46.3) fL Plt Count (182-369) K/mm3 MPV (9.4-12.3) fl Neut % (Auto) (34.0-71.1) % Lymph % (Auto) (19.3-51.7) % [place]ick[place] % (Auto) (4.7-12.5) % Eos % (Auto) (0.7-5.8) Baso % (Auto) (0.1-1.2) % Neut # (Auto) (1.56-6.13) K/mm3 Lymph # (Auto) (1.18-3.74) K/mm3 [place] # (Auto) (0.24-0.36) K/mm3 Eos # (Auto) (0.04-0.36) K/mm3 Baso # (Auto) (0.01-0.08) K/mm3 Sodium (136-145) mEq/L Potassium (3.5-5.1) mEq/L Chloride (98-107) mEq/L Carbon Dioxide (21-32) mEq/L Anion Gap (5-15) BUN (7-18) mg/dL Creatinine (0.55-1.02) mg/dL Est Cr Clr Drug Dosing mL/min Estimated GFR (MDRD) (>60) mL/min BUN/Creatinine Ratio (14-18) Glucose (74-106) mg/dL Calcium (8.5-10.1) mg/dL Magnesium 2.4 (1.8-2.4) mg/dl Total Bilirubin (0.2-1.0) mg/dL AST (15-37) U/L ALT (14-59) U/L Alkaline Phosphatase (46-116) U/L Total Protein (6.4-8.2) g/dl Albumin (3.4-5.0) g/dl Globulin gm/dL Albumin/Globulin Ratio (1-2) HCG, Qual Negative (NEGATIVE) Urine Color Yellow (Yellow) Urine Appearance Clear (Clear) Urine pH 6.0 (5.0-8.0) Ur Specific [place] 1.015 (1.005-1.030) Urine Protein Negative (Negative) Urine Glucose (UA) Negative (Negative) Urine Ketones Trace H (Negative) Urine Occult Blood 1+ H (Negative) Urine Nitrite Negative (Negative) Urine Bilirubin Negative (Negative) Urine Urobilinogen 0.2 (0.2-1.0) Ur Leukocyte Esterase Trace H (Negative) Urine RBC 0-5 (0-5) /hpf Urine WBC 5-10 H (0-5) /hpf Ur Epithelial Cells 5-10 H (0-5) /hpf Calcium Oxalate Crystal Rare H (NONE) Urine Bacteria Moderate H (FEW) /hpf Urine Mucus Moderate H (FEW) /hpf Urine Opiates Screen (NEGATIVE) Ur Buprenorphine Scrn (NEGATIVE) Ur Oxycodone Screen (NEGATIVE) Urine Methadone Screen (NEGATIVE) Ur Propoxyphene Screen (NEGATIVE) Ur Barbiturates Screen (NEGATIVE) Ur Tricyclics Screen (NEGATIVE) Ur Phencyclidine Scrn (NEGATIVE) Ur Amphetamine Screen (NEGATIVE) U Methamphetamines Scrn (NEGATIVE) U Benzodiazepines Scrn (NEGATIVE) U Cocaine Metab Screen (NEGATIVE) U Marijuana (THC) Screen (NEGATIVE) Ethyl Alcohol (0.00) gm% HIV-1 Ab Rapid Screen (NEGATIVE) C trachomatis DNA (PCR) N gonorrhoeae DNA (PCR) 04/29/18 04/29/18 04/30/18 Range/Units 20:30 20:30 05:45 WBC 7.49 (3.98-10.04) K/mm3 RBC 4.24 (3.98-5.22) M/mm3 Hgb 13.0 (11.2-15.7) gm/L Hct 38.7 (34.1-44.9) % MCV 91.3 (79.4-94.8) fl MCH 30.7 (25.6-32.2) pg MCHC 33.6 (32.2-35.5) g/dl RDW Std Deviation 45.0 (36.4-46.3) fL Plt Count 221 (182-369) K/mm3 MPV 9.5 (9.4-12.3) fl Neut % (Auto) 74.2 H (34.0-71.1) % Lymph % (Auto) 15.9 L (19.3-51.7) % [place]ick[place] % (Auto) 7.7 (4.7-12.5) % Eos % (Auto) 2.0 (0.7-5.8) Baso % (Auto) 0.1 (0.1-1.2) % Neut # (Auto) 5.55 (1.56-6.13) K/mm3 Lymph # (Auto) 1.19 (1.18-3.74) K/mm3 [place] # (Auto) 0.58 H (0.24-0.36) K/mm3 Eos # (Auto) 0.15 (0.04-0.36) K/mm3 Baso # (Auto) 0.01 (0.01-0.08) K/mm3 Sodium (136-145) mEq/L Potassium (3.5-5.1) mEq/L Chloride (98-107) mEq/L Carbon Dioxide (21-32) mEq/L Anion Gap (5-15) BUN (7-18) mg/dL Creatinine (0.55-1.02) mg/dL Est Cr Clr Drug Dosing mL/min Estimated GFR (MDRD) (>60) mL/min BUN/Creatinine Ratio (14-18) Glucose (74-106) mg/dL Calcium (8.5-10.1) mg/dL Magnesium (1.8-2.4) mg/dl Total Bilirubin (0.2-1.0) mg/dL AST (15-37) U/L ALT (14-59) U/L Alkaline Phosphatase (46-116) U/L Total Protein (6.4-8.2) g/dl Albumin (3.4-5.0) g/dl Globulin gm/dL Albumin/Globulin Ratio (1-2) HCG, Qual (NEGATIVE) Urine Color (Yellow) Urine Appearance (Clear) Urine pH (5.0-8.0) Ur Specific [place] (1.005-1.030) Urine Protein (Negative) Urine Glucose (UA) (Negative) Urine Ketones (Negative) Urine Occult Blood (Negative) Urine Nitrite (Negative) Urine Bilirubin (Negative) Urine Urobilinogen (0.2-1.0) Ur Leukocyte Esterase (Negative) Urine RBC (0-5) /hpf Urine WBC (0-5) /hpf Ur Epithelial Cells (0-5) /hpf Calcium Oxalate Crystal (NONE) Urine Bacteria (FEW) /hpf Urine Mucus (FEW) /hpf Urine Opiates Screen Negative (NEGATIVE) Ur Buprenorphine Scrn Negative (NEGATIVE) Ur Oxycodone Screen Negative (NEGATIVE) Urine Methadone Screen Negative (NEGATIVE) Ur Propoxyphene Screen Negative (NEGATIVE) Ur Barbiturates Screen Negative (NEGATIVE) Ur Tricyclics Screen Negative (NEGATIVE) Ur Phencyclidine Scrn Negative (NEGATIVE) Ur Amphetamine Screen Presumptive positive H (NEGATIVE) U Methamphetamines Scrn Presumptive positive H (NEGATIVE) U Benzodiazepines Scrn Negative (NEGATIVE) U Cocaine Metab Screen Negative (NEGATIVE) U Marijuana (THC) Screen Presumptive positive H (NEGATIVE) Ethyl Alcohol (0.00) gm% HIV-1 Ab Rapid Screen (NEGATIVE) C trachomatis DNA (PCR) Not detected N gonorrhoeae DNA (PCR) Not detected 04/30/18 Range/Units 05:45 WBC (3.98-10.04) K/mm3 RBC (3.98-5.22) M/mm3 Hgb (11.2-15.7) gm/L Hct (34.1-44.9) % MCV (79.4-94.8) fl MCH (25.6-32.2) pg MCHC (32.2-35.5) g/dl RDW Std Deviation (36.4-46.3) fL Plt Count (182-369) K/mm3 MPV (9.4-12.3) fl Neut % (Auto) (34.0-71.1) % Lymph % (Auto) (19.3-51.7) % [place] % (Auto) (4.7-12.5) % Eos % (Auto) (0.7-5.8) Baso % (Auto) (0.1-1.2) % Neut # (Auto) (1.56-6.13) K/mm3 Lymph # (Auto) (1.18-3.74) K/mm3 [place] # (Auto) (0.24-0.36) K/mm3 Eos # (Auto) (0.04-0.36) K/mm3 Baso # (Auto) (0.01-0.08) K/mm3 Sodium 140 (136-145) mEq/L Potassium 4.3 (3.5-5.1) mEq/L Chloride 107 (98-107) mEq/L Carbon Dioxide 24 (21-32) mEq/L Anion Gap 13.3 (5-15) BUN 13 (7-18) mg/dL Creatinine 0.9 (0.55-1.02) mg/dL Est Cr Clr Drug Dosing 62.55 mL/min Estimated GFR (MDRD) > 60 (>60) mL/min BUN/Creatinine Ratio 14.4 (14-18) Glucose 135 H (74-106) mg/dL Calcium 7.7 L (8.5-10.1) mg/dL Magnesium 1.8 (1.8-2.4) mg/dl Total Bilirubin 0.5 (0.2-1.0) mg/dL AST 54 H (15-37) U/L ALT 95 H (14-59) U/L Alkaline Phosphatase 73 (46-116) U/L Total Protein 5.6 L (6.4-8.2) g/dl Albumin 2.9 L (3.4-5.0) g/dl Globulin 2.7 gm/dL Albumin/Globulin Ratio 1.1 (1-2) HCG, Qual (NEGATIVE) Urine Color (Yellow) Urine Appearance (Clear) Urine pH (5.0-8.0) Ur Specific [place] (1.005-1.030) Urine Protein (Negative) Urine Glucose (UA) (Negative) Urine Ketones (Negative) Urine Occult Blood (Negative) Urine Nitrite (Negative) Urine Bilirubin (Negative) Urine Urobilinogen (0.2-1.0) Ur Leukocyte Esterase (Negative) Urine RBC (0-5) /hpf Urine WBC (0-5) /hpf Ur Epithelial Cells (0-5) /hpf Calcium Oxalate Crystal (NONE) Urine Bacteria (FEW) /hpf Urine Mucus (FEW) /hpf Urine Opiates Screen (NEGATIVE) Ur Buprenorphine Scrn (NEGATIVE) Ur Oxycodone Screen (NEGATIVE) Urine Methadone Screen (NEGATIVE) Ur Propoxyphene Screen (NEGATIVE) Ur Barbiturates Screen (NEGATIVE) Ur Tricyclics Screen (NEGATIVE) Ur Phencyclidine Scrn (NEGATIVE) Ur Amphetamine Screen (NEGATIVE) U Methamphetamines Scrn (NEGATIVE) U Benzodiazepines Scrn (NEGATIVE) U Cocaine Metab Screen (NEGATIVE) U Marijuana (THC) Screen (NEGATIVE) Ethyl Alcohol 0.00 (0.00) gm% HIV-1 Ab Rapid Screen (NEGATIVE) C trachomatis DNA (PCR) N gonorrhoeae DNA (PCR) Result Diagrams: 04/30/18 05:45 04/30/18 05:45 Khoa Results Last 24 hrs: Microbiology 04/29/18 20:30 Urine Culture - Preliminary Urine, Clean Catch Gram Positive Cocci Orders Last 24hrs: Active Orders 24 hr Category Date Time Status Admission Status [Patient Status] [ADT] Routine ADT 04/29/18 22:42 Active CIWAA Assessment [RC] Q1HR Care 04/29/18 22:54 Active Cardiac Monitoring [RC] CONTINUOUS Care 04/30/18 05:36 Active Communication Order [RC] ROUTINE Care 04/30/18 00:06 Active Height and Weight [RC] 04 Care 04/30/18 05:35 Active Intake and Output [RC] 04,16 Care 04/30/18 05:36 Active Notify Provider Consults [RC] ASDIRECTED Care 04/30/18 05:44 Active Notify Provider [RC] PRN Care 04/30/18 05:35 Active Oxygen Therapy [RC] PRN Care 04/30/18 05:35 Active RT Aerosol Therapy [RC] ASDIRECTED Care 04/30/18 05:40 Active Up With Assistance [RC] ASDIRECTED Care 04/30/18 05:35 Active Up ad Tami [RC] ASDIRECTED Care 04/30/18 05:35 Active VTE/DVT Education [RC] Care 04/30/18 05:35 Active Vital Signs [RC] Q4HR Care 04/30/18 05:35 Active Consult for Substance Abuse [CONS] Routine Cons 04/30/18 14:51 Active Consult to Case Management [CONS] Routine Cons 04/30/18 05:35 Active Consult to Physician [CONS] Routine Cons 04/30/18 05:35 Active Consult to Forestry Foreman [CONS] Routine Cons 04/30/18 05:35 Active Consult to Spiritual Care [CONS] Routine Cons 04/30/18 05:35 Active Heart Healthy Diet [DIET] Diet 04/30/18 Breakfast Active BASIC METABOLIC PANEL,BMP [CHEM] AM Lab 05/01/18 05:11 Ordered BASIC METABOLIC PANEL,BMP [CHEM] AM Lab 05/02/18 05:11 Ordered BASIC METABOLIC PANEL,BMP [CHEM] AM Lab 05/03/18 05:11 Ordered C-REACTIVE PROTEIN [CHEM] AM Lab 05/01/18 05:11 Ordered CULTURE URINE [RM] Routine Lab 04/30/18 00:08 Results DRUG SCREEN, URINE [URCHEM] Stat Lab 04/29/18 20:30 Ordered HEPATITIS PANEL (4) [REF] Stat Lab 04/29/18 21:06 Received MAGNESIUM [CHEM] AM Lab 05/01/18 05:11 Ordered MAGNESIUM [CHEM] AM Lab 05/02/18 05:11 Ordered MAGNESIUM [CHEM] AM Lab 05/03/18 05:11 Ordered UA W/MICROSCOPIC [URIN] Stat Lab 04/29/18 20:30 Ordered Acetaminophen/HYDROcodone [Barton 325-5 MG] Med 04/30/18 05:35 Active 1 tab PO Q4H PRN Albuterol/Ipratropium [DuoNeb 3.0-0.5 MG/3 ML] Med 04/30/18 05:35 Active 3 ml NEB Q4H PRN Bisacodyl [Dulcolax] Med 04/30/18 05:35 Active 5 mg PO DAILY PRN Citalopram [Celexa] Med 04/30/18 09:00 Active 40 mg PO DAILY Docusate Sodium [Colace] Med 04/30/18 05:35 Active 100 mg PO BID PRN Docusate Sodium/Sennosides [Senna Plus] Med 04/30/18 05:35 Active 1 tab PO BID PRN Famotidine [Pepcid] Med 04/30/18 09:00 Active 20 mg PO BID Folic Acid Med 04/30/18 09:00 Active 1 mg PO DAILY HYDROmorphone [Dilaudid] Med 04/30/18 05:35 Active 0.25 mg IVPUSH Q2H PRN Haloperidol Lactate [Haldol] Med 04/30/18 05:35 Active 2 mg IM Q4H PRN Hydrochlorothiazide Med 04/30/18 09:00 Active 12.5 mg PO DAILY Ibuprofen [Motrin] Med 04/30/18 05:35 Active 400 mg PO Q6H PRN LORazepam [Ativan] Med 04/29/18 23:58 Active 1 - 3 mg IVPUSH Q1H PRN LORazepam [Ativan] Med 04/30/18 05:31 Active 2 mg IVPUSH Q4H PRN Lisinopril [Prinivil] Med 04/30/18 09:00 Active 20 mg PO DAILY Magnesium Rep Pharmacy to Dose [Pharmacy to Dose - Med 04/30/18 05:45 Active Magnesium Replacement] 0 dose .XX ASDIRECTED PRN Metoprolol Tartrate [Lopressor] Med 04/30/18 05:31 Active 5 mg IVPUSH Q4H PRN Multivitamins,Therapeutic [Thera] Med 04/30/18 09:00 Active 1 each PO DAILY Nicotine [Habitrol] Med 04/30/18 09:00 Active 21 mg TRDERM DAILY Ondansetron [Zofran ODT] Med 04/29/18 23:56 Active 4 mg PO Q4H PRN Ondansetron [Zofran] Med 04/29/18 23:56 Active 4 mg IVPUSH Q8H PRN Polyethylene Glycol 3350 [MiraLAX] Med 04/30/18 05:35 Active 17 gm PO DAILY PRN Potassium Rep Pharmacy to Dose [Pharmacy to Dose - Med 04/30/18 05:45 Active Potassium Replacement] 0 dose .XX ASDIRECTED PRN Prazosin [Minpress] Med 04/30/18 09:00 Active 1 mg PO DAILY Promethazine [Phenergan] 12.5 mg Med 04/30/18 05:35 Active Sodium Chloride 0.9% [Normal Saline] 50 ml IV Q6H QUEtiapine [SEROquel] Med 04/30/18 21:00 Active 50 mg PO BEDTIME Simvastatin [Zocor] Med 04/30/18 21:00 Active 20 mg PO BEDTIME Sodium Chloride 0.9% [Normal Saline] 1,000 ml Med 04/29/18 23:45 Active IV ASDIRECTED Thiamine [Vitamin B-1] Med 04/30/18 09:00 Active 100 mg PO DAILY Topiramate [Topamax] Med 04/30/18 09:00 Active 25 mg PO BID cefTRIAXone [Rocephin] 1 gm Med 04/30/18 17:00 Ordered Sodium Chloride 0.9% [Normal Saline] 100 ml IV Q24H chlordiazePOXIDE [Librium] Med 04/30/18 00:05 Active 25 mg PO ONETIME PRN chlordiazePOXIDE [Librium] Med 04/30/18 05:35 Active 25 mg PO Q8H PRN cloNIDine [Catapres] Med 04/30/18 05:35 Active 0.1 mg PO Q4H PRN hydrALAZINE [Apresoline] Med 04/30/18 05:31 Active 20 mg IVPUSH Q4H PRN Seizure Precautions [OM.PC] Routine Oth 04/29/18 23:55 Ordered Sequential Compression Device [OM.PC] Per Unit Routine Oth 04/30/18 05:36 Ordered Code Status [Resuscitation Status] Routine Resus Stat 04/30/18 00:47 Ordered Medication Orders Hydrocodone Bitart/Acetaminophen (Barton 325-5 Mg) 1 tab PO Q4H PRN PRN Reason: Pain (moderate 4-6) Albuterol/Ipratropium (Duoneb 3.0-0.5 Mg/3 Ml) 3 ml NEB Q4H PRN PRN Reason: Shortness Of Breath/wheezing Bisacodyl (Dulcolax) 5 mg PO DAILY PRN PRN Reason: Constipation Chlordiazepoxide HCl (Librium) 25 mg PO ONETIME PRN PRN Reason: if CIWAA >12 Chlordiazepoxide HCl (Librium) 25 mg PO Q8H PRN PRN Reason: Withdrawal Symptoms Citalopram Hydrobromide (Celexa) 40 mg PO DAILY [facility] Last Admin: 04/30/18 09:07 Dose: 40 mg Clonidine HCl (Catapres) 0.1 mg PO Q4H PRN PRN Reason: Agitation (SEE LABEL COMMENTS) Docusate Sodium (Colace) 100 mg PO BID PRN PRN Reason: Constipation Famotidine (Pepcid) 20 mg PO BID [facility] Last Admin: 04/30/18 09:07 Dose: 20 mg Folic Acid (Folic Acid) 1 mg PO DAILY [facility] Stop: 05/02/18 09:01 Last Admin: 04/30/18 09:07 Dose: 1 mg Haloperidol Lactate (Haldol) 2 mg IM Q4H PRN PRN Reason: Agitation Hydralazine HCl (Apresoline) 20 mg IVPUSH Q4H PRN PRN Reason: Hypertension Hydrochlorothiazide (Hydrochlorothiazide) 12.5 mg PO DAILY [facility] Last Admin: 04/30/18 09:07 Dose: 12.5 mg Hydromorphone HCl (Dilaudid) 0.25 mg IVPUSH Q2H PRN PRN Reason: Pain (severe 7-10) Sodium Chloride (Normal Saline) 1,000 mls @ 100 mls/hr IV ASDIRECTED [facility] Last Admin: 04/30/18 11:06 Dose: 100 mls/hr Infusion: 04/30/18 10:40 Dose: 100 mls/hr Admin: 04/30/18 00:40 Dose: 100 mls/hr Promethazine HCl 12.5 mg/ (Sodium Chloride) 50.5 mls @ 100 mls/hr IV Q6H PRN PRN Reason: Nausea/Vomiting Ceftriaxone Sodium 1 gm/ (Sodium Chloride) 100 mls @ 200 mls/hr IV Q24H [facility] Ibuprofen (Motrin) 400 mg PO Q6H PRN PRN Reason: Pain (mild 1-3) Last Admin: 04/30/18 13:07 Dose: 400 mg Lisinopril (Prinivil) 20 mg PO DAILY [facility] Last Admin: 04/30/18 09:08 Dose: 20 mg Lorazepam (Ativan) 1 - 3 mg IVPUSH Q1H PRN; Protocol PRN Reason: CIWAA protocol Lorazepam (Ativan) 2 mg IVPUSH Q4H PRN PRN Reason: Seizures Magnesium Sulfate (Pharmacy To Dose - Magnesium Replacement) 0 dose .XX ASDIRECTED PRN PRN Reason: RX TO WATCH MAG LEVELS Metoprolol Tartrate (Lopressor) 5 mg IVPUSH Q4H PRN PRN Reason: Tachycardia Multivitamins (Thera) 1 each PO DAILY [facility] Stop: 05/02/18 09:01 Last Admin: 04/30/18 09:07 Dose: 1 each Nicotine (Habitrol) 21 mg TRDERM DAILY [facility] Last Admin: 04/30/18 09:08 Dose: 21 mg Ondansetron HCl (Zofran Odt) 4 mg PO Q4H PRN PRN Reason: Nausea/Vomiting Ondansetron HCl (Zofran) 4 mg IVPUSH Q8H PRN PRN Reason: Nausea/Vomiting Polyethylene Glycol (Miralax) 17 gm PO DAILY PRN PRN Reason: Constipation Potassium Chloride (Pharmacy To Dose - Potassium Replacement) 0 dose .XX ASDIRECTED PRN PRN Reason: RX TO WATCH K LEVELS Prazosin HCl (Minpress) 1 mg PO DAILY [facility] Last Admin: 04/30/18 09:08 Dose: 1 mg Quetiapine Fumarate (Seroquel) 50 mg PO BEDTIME [facility] Senna/Docusate Sodium (Senna Plus) 1 tab PO BID PRN PRN Reason: Constipation Simvastatin (Zocor) 20 mg PO BEDTIME [facility] Thiamine HCl (Vitamin B-1) 100 mg PO DAILY [facility] Last Admin: 04/30/18 09:07 Dose: 100 mg Topiramate (Topamax) 25 mg PO BID [facility] Last Admin: 04/30/18 09:07 Dose: 25 mg Assessment/Plan Comment:: The patient was seen and examined at bedside in concert with the PA student. The admission assessment and plans were discussed and agreed upon with me.
[2018-04-30] MEDS ORDERED: cefTRIAXone 1 GM in Sodium Chloride 0.9% 100 ML IV SCH ×2 (15:00→20:00)
[2018-04-30 20:24] VITALS: BP 109/63
[2018-04-30] MEDS ORDERED: Simvastatin 20 MG Tab PO SCH (21:00)
[2018-04-30] MEDS ORDERED: QUEtiapine 25 MG Tab PO SCH (21:00)
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
[2018-05-01] MEDS ORDERED: Lithium Carbonate 300 MG Cap PO SCH (09:00)
--- NOTE | 2018-05-01 09:29 | CONS ---
CONSULTING PHYSICIAN: Richardson Degroot MD DATE OF CONSULTATION: 04/30/2018 PSYCHIATRIC EVALUATION This is a 60-minute inpatient clinical event. IDENTIFICATION: The patient is a 48-year-old female, who was admitted to the [facility] on 04/29/2018. She is seen for psychiatric evaluation. CHIEF COMPLAINT: "I was in treatment for 6 weeks in [place], then I came out of treatment and relapsed on 04/24." HISTORY OF PRESENT ILLNESS: The patient is a 48-year-old female, who reports that she has been struggling with chemical dependency issues involving excessive alcohol, marijuana and methamphetamine abuse. She had been in treatment and had gotten 6 weeks of sobriety under her belt, and she was discharged, and she states that she made a bad choice because she went to see an old boyfriend and then ended up relapsing. She states that her addiction issues are also complicated by the fact that she has "bipolar." She states also "I tend to be more manic than depressive." She notes increased impulsivity and mood swings lately, and she states also "when I am using, I do not take my meds." She denies that she is suicidal or homicidal. She denies any psychotic, delusional, or paranoid symptoms. She states she definitely wants to get sober and stay sober. She feels very badly about her recent turn of events. She states that when she is medically stabilized and through any type of withdrawal symptoms, she does have "a bed at the [facility] in [place]" that she intends to take and continue working on her sobriety. In the meantime, she is wondering if her medications can be adjusted while she is in the hospital for her psychiatric issues. She is currently reporting that she takes Topamax, prazosin, Klonopin, and Lexapro, and she states that she heard that lithium was very good and she would like to try the lithium now instead of the Topamax because she does not feel Topamax is really helping with her mood swings. She does feel Lexapro is effective for her and wants to stay on the prazosin also. MEDICATIONS: At the time of presentation, home meds include Neurontin, Klonopin, Lexapro, prazosin, and Topamax. Since she has been on the unit, she is being given Seroquel, Topamax, Celexa, and trazodone as well as antibiotics. ALLERGIES: No known drug allergies. PAST MEDICAL HISTORY: 1. UTI. 2. Hypertension. 3. High cholesterol. REVIEW OF SYSTEMS: Aside from genitourinary, cardiovascular, and endocrine, all other major organ systems are negative at this point in time for acute difficulties or complications. FAMILY PSYCHIATRIC AND CD HISTORY: The patient reports she has a daughter who has a history of mental health issues. PAST PSYCHIATRIC AND CD HISTORY: The patient reports 1 psychiatric hospitalization in the late s. She reports 3 chemical dependency treatments in the past including her most recent treatment. Longest sobriety has been for 4 years and this was when she was going to AA and AA did help her. She reports one suicide attempt by OD while under the influence and again this was in the late s. Denies any self- injurious behaviors or eating disorder history. Past psychiatric diagnoses include depression, PTSD, and bipolar affective disease. Past psychiatric medication history includes Topamax, prazosin, Klonopin, Lexapro, Seroquel, Effexor, and Zoloft; the latter 3 which were giving bad side effects to the patient, were ineffective. Primary outpatient psychiatrist is Dr. Magana. SOCIAL HISTORY: The patient was born and raised in [place], [place]. She is the oldest of 2 siblings, having 1 younger sister. The patient's parents were throughout childhood and adolescence. Father is a secondary school registrar. Mother also worked in the school system. The patient's highest level of education is a 4- year degree in education. 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 She is x1 for 21 years, but has been for the past 2 years. She is not involved in any current relationship. She has 2 children from prior to the marriage, 25 and 22 years of age and then 1 boy who is 17 years of age from the marriage. The patient is currently stating that she is homeless, but does have a bed at the [facility] in [place]. Denies any legal difficulties or any prior service. She was raised Catholic. She enjoys reading and walking in her spare time. MENTAL STATUS EXAM: The patient is a 48-year-old white female, in no apparent distress. Speech is of regular rate and rhythm. The patient is cognitively oriented. Psychomotor activity is within normal limits. There is no abnormal motor movements or tics observed. Gait and station are not observed. This patient is seated on the side of the bed for the purposes of the inpatient consult. There is no behavioral or stated evidence of acute suicidal or homicidal ideation, or acute psychotic, delusional, or paranoid symptoms. Thought processes are organized. There are no manic symptoms or loose associations evident. Judgment and insight appear unimpaired at this point in time. Motivation for help appears fair to good. VITALS: 132/83, 88, 20, 97.9 degrees. IMPRESSION: [place] I. 1. Bipolar affective disease, mixed type, F31.60. 2. Posttraumatic stress disorder, F43.10. 3. Alcohol dependence, F10.20. 4. Polysubstance dependence involving cannabis and methamphetamine. [place] II: None. [place] III: 1. Urinary tract infection. 2. Hypertension. 3. High cholesterol. [place] IV: Severe. [place] V: 60. PLAN: 1. Sobriety. 2. AA rep to visit the patient while on the unit. 3. Pastoral guidance. 4. Discontinue Topamax. 5. Discontinue Seroquel. 6. Discontinue trazodone. 7. Begin lithium carbonate 300 mg b.i.d. for mood stability. 8. Continue Celexa 40 mg daily while the patient is on unit in lieu of Lexapro as the hospital does not carry Lexapro. 9. Begin prazosin 1 mg at bedtime. 10.Thiamine supplementation. 11.Folic acid supplementation. 12.Recommend that the patient be transferred to [facility] once she is medically stabilized. 13.Recommend that the patient follow up with Outpatient Psychiatry as scheduled to assess overall function and efficacy of her newly adjusted and initiated psychiatric medication regimen. 14.We will continue to follow up with the patient on an as-needed basis while she remains on the inpatient medical unit. 15.We will follow up with the patient sooner if any complications in the interim. 16.Crisis plan is in place. [facility] /[id number]
== END 2018-04-30 21:00 | disposition left against medical advice (07) | DRG 918 ==
LOC: JD.ED 19:33 → JD.ICU 22:42
PROVIDERS: ADMIT Internal Medicine; ATTEND Internal Medicine
DX: T43.621A Poisoning by amphetamines, accidental (unintentional), initial encounter (principal); T76.21XA Adult sexual abuse, suspected, initial encounter; N39.0 Urinary tract infection, site not specified; F31.60 Bipolar disorder, current episode mixed, unspecified; F15.20 Other stimulant dependence, uncomplicated; F10.20 Alcohol dependence, uncomplicated; F12.20 Cannabis dependence, uncomplicated; I10 Essential (primary) hypertension; E78.5 Hyperlipidemia, unspecified; F41.9 Anxiety disorder, unspecified; B95.5 Unspecified streptococcus as the cause of diseases classified elsewhere; E87.6 Hypokalemia; F17.200 Nicotine dependence, unspecified, uncomplicated; K21.9 Gastro-esophageal reflux disease without esophagitis; J45.909 Unspecified asthma, uncomplicated; F43.10 Post-traumatic stress disorder, unspecified; E78.00 Pure hypercholesterolemia, unspecified; R51 Headache; Z79.899 Other long term (current) drug therapy; Z91.14 Patient's other noncompliance with medication regimen; Z59.0 Homelessness; Z91.19 Patient's noncompliance with other medical treatment and regimen; Z98.891 History of uterine scar from previous surgery; Y90.6 Blood alcohol level of 120-199 mg/100 ml
CPT/HCPCS: 36415; 80053; 80074; 80306; 81001; 83735; 84703; 85025; 87086; 87491; 87591; 96361; 96365; 96367; 96375; 99285-25; A9270-GY; G0433; G0480; J0456; J0696; J2310; J3480; J7030; J7040; J7050

== ENCOUNTER 2018-10-24 19:11 | Emergency (ER) | payer MEDICAID ==
[2018-10-24] MEDS ORDERED: Acetaminophen/oxyCODONE 325-5 MG Tab PO ONE (19:31)
[2018-10-24] MEDS ORDERED: Ondansetron 4 MG Tab.DIS PO ONE (19:31)
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
[2018-10-24 19:56] VITALS: BP 142/81
--- NOTE | 2018-10-24 21:02 | CT ---
CT lumbar spine Technique: Multiple axial sections were obtained from the top of T11 inferiorly to the bottom of the S5 segment. Findings: Fracture is identified within L1. This involves the superior vertebral body. There is a retrolisthesis posterior fragment by approximately 6 mm into the central canal. There is approximately 50% vertebral body loss in height. Posterior elements are intact within L1. No additional lumbar spine fracture is seen. Fracture is identified to the right side of the sacrum close to the sacroiliac joint. Left-sided sacrum appears intact. Mild circumferential disc bulge is noted at L3-L4 with posterior disc having a concave margin. Circumferential disc bulge is noted L4-L5 with posterior disc having planar margin. No traumatic disc herniation is seen. Impression: 1. Fracture involving the superior vertebral body of L1. Posterior retrolisthesis fragment is seen extending 6 mm into the central canal. Approximate 50% loss of body height is seen. No involvement of the posterior arche is seen. 2. Nondisplaced fracture within the right side of the sacrum near the sacroiliac joint. 3. Mild disc bulging is incidentally noted. Diagnostic code #3
--- NOTE | 2018-10-25 07:42 | CR ---
Left shoulder: Three views of the left shoulder were obtained. Fracture is identified within the posterolateral humeral neck with displaced fragments being seen. Glenohumeral joint and acromioclavicular joint appear unremarkable. No additional abnormality is seen. Impression: 1. Humeral fracture as noted above. Diagnostic code #3
--- NOTE | 2018-10-25 07:42 | CR ---
Left humerus: Two views of the left humerus were obtained. Proximal humeral fracture is again seen. No additional fracture or other abnormality is seen. Impression: 1. Proximal humeral fracture. Diagnostic code #3
== END 2018-10-24 21:07 | disposition home or self-care (01) ==
LOC: JD.ED 19:11
DX: S42.252A Displaced fracture of greater tuberosity of left humerus, initial encounter for closed fracture (principal); S50.11XA Contusion of right forearm, initial encounter; S39.012A Strain of muscle, fascia and tendon of lower back, initial encounter; E78.00 Pure hypercholesterolemia, unspecified; I10 Essential (primary) hypertension; J45.909 Unspecified asthma, uncomplicated; K21.9 Gastro-esophageal reflux disease without esophagitis; F41.9 Anxiety disorder, unspecified; F17.210 Nicotine dependence, cigarettes, uncomplicated; Z88.5 Allergy status to narcotic agent; Z79.899 Other long term (current) drug therapy; Y04.8XXA Assault by other bodily force, initial encounter
CPT/HCPCS: 72131; 73030; 73060; 99284; A9270

== ENCOUNTER 2018-11-02 15:10 | Emergency (ER) | payer MEDICAID ==
[2018-11-02 15:22] VITALS: BP 131/80
[2018-11-02] MEDS ORDERED: Acetaminophen/oxyCODONE 325-5 MG Tab PO ONE (16:10)
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
== END 2018-11-02 16:38 | disposition home or self-care (01) ==
LOC: JD.ED 15:10
DX: S42.202D Unspecified fracture of upper end of left humerus, subsequent encounter for fracture with routine healing (principal); J06.9 Acute upper respiratory infection, unspecified; F17.210 Nicotine dependence, cigarettes, uncomplicated; I10 Essential (primary) hypertension; K21.9 Gastro-esophageal reflux disease without esophagitis; E78.00 Pure hypercholesterolemia, unspecified; Z79.899 Other long term (current) drug therapy; F41.9 Anxiety disorder, unspecified; Z88.6 Allergy status to analgesic agent; X58.XXXD Exposure to other specified factors, subsequent encounter
CPT/HCPCS: 99282; A9270; 99283

== ENCOUNTER 2018-11-14 17:19 | Emergency (ER) | payer MEDICAID ==
[2018-11-14 17:29] VITALS: BP 146/91
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
== END 2018-11-14 18:03 | disposition home or self-care (01) ==
LOC: JD.ED 17:19
DX: S42.202D Unspecified fracture of upper end of left humerus, subsequent encounter for fracture with routine healing (principal); Z76.5 Malingerer [conscious simulation]; Z76.0 Encounter for issue of repeat prescription; Z79.899 Other long term (current) drug therapy; Z88.6 Allergy status to analgesic agent; F17.210 Nicotine dependence, cigarettes, uncomplicated; X58.XXXD Exposure to other specified factors, subsequent encounter
CPT/HCPCS: 99283

== ENCOUNTER 2020-02-09 13:53 | Emergency (ER) | payer BC, MEDICAID ==
[2020-02-09] MEDS ORDERED: LORazepam 2 MG/ML SDV IVPUSH ONE (13:59)
[2020-02-09] MEDS ORDERED: Sodium Chloride 0.9% 10 ML Syringe FLUSH PRN (13:59)
[2020-02-09] MEDS ORDERED: levETIRAcetam 1,000 MG in Sodium Chloride 0.9% 100 ML IV ONE (14:01)
[2020-02-09] MEDS ORDERED: Sodium Chloride 0.9% 1,000 ML IV ONE (14:15)
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
[2020-02-09] MEDS ORDERED: Ketamine 500 mg/10 ML MDV IV ONE (14:45)
[2020-02-09] MEDS ORDERED: Ketamine 500 mg/10 ML MDV ONE (14:47)
[2020-02-09] MEDS ORDERED: Etomidate 2 MG/ML 20 ML SDV IVPUSH ONE (15:00)
[2020-02-09] MEDS ORDERED: Succinylcholine 200 MG/10 ML MDV ONE (15:00)
--- NOTE | 2020-02-09 15:04 | CT ---
Head CT Technique: Multiple axial sections through the brain were obtained. Intravenous contrast was not utilized. Comparison: No prior intracranial imaging is available. Findings: Previous right-sided craniotomy is noted. Low density is's noted within the right frontal region presumably due to encephalomalacia which appears to be old. No other abnormal parenchymal densities are seen. No evidence of intracranial hemorrhage. No midline shift or mass-effect is appreciated. No acute calvarial abnormality is appreciated. Impression: 1. Previous surgery with area of encephalomalacia as noted above. 2. No acute intracranial abnormality is appreciated. Diagnostic code #2 This report was dictated in MDT
--- NOTE | 2020-02-09 15:04 | CT ---
CT facial bones Technique: Multiple axial sections through the facial bones were obtained. Reconstructed coronal and sagittal images were reviewed. Findings: Mastoid sinuses show nothing acute. Paranasal sinuses show nothing acute. Mild nasal septal deviation is seen. Previous surgery is noted with craniotomy within the right temporal region. No acute osseous finding is appreciated. Right and left globes are symmetric. No retrobulbar abnormality is seen. Mild soft tissue swelling is noted within the left periorbital region. Impression: 1. Previous right-sided temporal craniotomy. 2. Mild soft tissue swelling within left periorbital region. 3. Nothing acute is otherwise appreciated on CT study of the facial bones. Diagnostic code #2 This report was dictated in MDT
[2020-02-09] MEDS ORDERED: Midazolam 1 MG/ML 5 ML SDV IVPUSH ONE (15:26)
[2020-02-09] MEDS: Midazolam 1 MG/ML 2 ML SDV IVPUSH ONE (15:26)
--- NOTE | 2020-02-09 16:20 | CR ---
Chest: Portable supine view of the chest was obtained. Comparison: Prior chest x-ray of 05/07/19. Heart size and mediastinum are within normal limits for portable technique. Atelectasis is seen behind the left heart. Lungs otherwise are clear. Endotracheal tube is seen. Tip lies at the lower level of the clavicles. Nasogastric tube is seen with tip lying within the stomach off the inferior edge of the film. Impression: 1. Mild atelectasis. 2. Satisfactory position of tubes and catheters. 3. Nothing acute is otherwise seen on supine chest x-ray. Diagnostic code #2 This report was dictated in MDT
[2020-02-09] MEDS ORDERED: propofoL 100 ML IV SCH (18:00)
[2020-02-09 19:08] VITALS: BP 88/54; PULSE 73
[2020-02-10] MEDS: Midazolam 1 MG/ML 2 ML SDV IVPUSH ONE (11:20)
== END 2020-02-09 16:20 ==
LOC: JD.ED 13:53
DX: J96.01 Acute respiratory failure with hypoxia (principal); R56.9 Unspecified convulsions; R40.1 Stupor; I10 Essential (primary) hypertension; E78.00 Pure hypercholesterolemia, unspecified; Z88.5 Allergy status to narcotic agent; Z79.899 Other long term (current) drug therapy
CPT/HCPCS: 31500; 36415; 43752; 51702; 70450; 70486; 71045; 80053; 80306; 80307; 81001; 82962; 83735; 84100; 85025; 86140; 96361; 96365; 96375; 99291; J0330; J1953; J2060; J2250; J2704; J3490; J7030; J7050